=== PATIENT | female | born 1970 | race Caucasian/White ===

== ENCOUNTER 2017-08-24 05:42 | Emergency (ER) | payer MEDICAID, SELFPAY ==
--- NOTE | 2017-08-24 05:42 | DT_ITS ---
This patient was seen during an EMR downtime August 20, 2017 - August 27, 2017. This patient may have a combination of paper and electronic documentation or all paper documentation. All documentation is viewable within the e-chart portion of [facility] for each patient visit.
== END 2017-08-24 07:30 | disposition home or self-care (01) ==
PROVIDERS: Emergency Provider Emergency Medicine; Family Provider Preventive Medicine Occupational Medicine; PCP Preventive Medicine Occupational Medicine
DX: S16.1XXA Strain of muscle, fascia and tendon at neck level, initial encounter (principal); X58.XXXA Exposure to other specified factors, initial encounter; Y93.9 Activity, unspecified; Y92.9 Unspecified place or not applicable; J02.9 Acute pharyngitis, unspecified; J45.909 Unspecified asthma, uncomplicated; K21.9 Gastro-esophageal reflux disease without esophagitis; M15.9 Polyosteoarthritis, unspecified; F43.10 Post-traumatic stress disorder, unspecified; Z79.899 Other long term (current) drug therapy; Z72.0 Tobacco use
CPT/HCPCS: 96372; 99283

== ENCOUNTER → 2017-08-30 12:51 | Outpatient (CLI) | payer MEDICAID, SELFPAY ==
--- NOTE | 2017-08-31 06:05 | PFTCOMP_ITS ---
COMPLETE PULMONARY FUNCTION TEST INTERPRETATION Brief HPI: Patient is a 46 year old female, currently under the care of Dr. Ludwig , who presents to [facility] for complete pulmonary function tests secondary to diagnosis of asthma. Respiratory therapist reports good effort and reproducible results. Interpretation: Forced expiration spirometry shows no large airways obstructive ventilatory defect with an FEV1 of 97% predicted. There is no significant bronchodilator response by ATS criteria. Spirograms are of good quality and plateau normally. The respiratory flow volume loop shows a normal pattern. Lung volumes by body plethysmography show an elevated total lung capacity at 5.49 L, 120% predicted. All other lung volumes are increased symmetrically. Diffusion capacity by carbon monoxide is normal at 83% predicted. The airway resistance is normal. No previous pulmonary function tests were available for review. Impression: These pulmonary function tests are grossly within normal limits and consistent with quiescent asthma.
== END ==
PROVIDERS: Family Provider Preventive Medicine Occupational Medicine; PCP Preventive Medicine Occupational Medicine; Visit Provider Internal Medicine Critical Care Medicine
DX: J45.909 Unspecified asthma, uncomplicated (principal)
CPT/HCPCS: 94060; 94726; 94729

== ENCOUNTER 2017-09-03 23:36 | Emergency (ER) | payer MEDICAID, SELFPAY ==
[2017-09-03 23:37] VITALS: BP 109/68; PULSE 72; RESP 18; TEMP 35.9; O2SAT 98; BMI 23.8
--- NOTE | 2017-09-04 00:47 | CT_ITS ---
STUDY: CT SOFT TISSUE NECK WITH CONTRAST REASON FOR EXAM: Female, 46 years old. Tongue swelling since yesterday. Elevated white blood count. History of Clark's esophagus. RADIATION DOSAGE (If Supplied By Facility): CTDIvol = ( 13.15 ) mGy, DLP = ( 331.55 ) mGycm TECHNIQUE: The patient was scanned in a multi-detector CT scanner. High resolution transaxial imaging was performed following intravenous administration of 75ml ml of Isovue 300 contrast material. Sagittal and coronal images were reconstructed. Individualized dose optimization techniques were used for this CT. COMPARISON: None. FINDINGS: Normal bilateral parotid glands. Normal bilateral flying instructor spaces. Normal bilateral parapharyngeal spaces. Normal bilateral carotid spaces. Normal bilateral sublingual and submandibular glands and spaces. Normal visualized nasopharynx. Normal retropharyngeal space. Normal perivertebral space. Normal visualized bilateral faucial tonsils. The visualized tongue, tongue base and oropharynx are normal. Mildly enlarged right deep cervical lymph nodes with the largest measuring 1.4 cm, coronal image 53. There is no demonstrated solid or cystic mass lesion. There is no abnormal contrast enhancement. Normal epiglottis, bilateral vallecula and hypopharynx. The pre-epiglottic and paraglottic adipose spaces are normal. Normal visualized bilateral piriform sinuses, aryepiglottic folds, vocal cords, and arytenoid-cricoid articulations. Normal subglottic trachea. Normal bilateral lobes of the thyroid gland. Normal visualized pulmonary apices. Normal visualized paranasal sinuses. Normal visualized cervical spine. CT/Soft Tissue Neck WITH Contrast IMPRESSION: Mild right sided cervical lymphadenopathy. The tongue is grossly normal. Electronically Signed: Ritesh Samuel MD at 3:15 EDT , Service support ,
--- NOTE | 2017-09-04 00:51 | ED.DCSUM_ITS ---
- ER Visit Summary Date of Service: 09/04/17 Chief Complaint: Tongue swelling History of Present Illness: The patient is a 46 F with tongue swelling that started gradually this morning. Her tongue is painful and she has trouble closing her mouth. She is not having trouble breathing or swallowing. Her voice seems hoarse. No fever or other associated symptoms. She never had this before. Physical Examination: Afebrile and vital signs unremarkable. The patient is alert. Voice is hoarse. Tongue is diffusely swollen, but only mildly. Good range of motion of her neck. Face is normal. Heart regular. Lungs clear. The remainder of her exam is unremarkable. Test Results: Laboratory studies and imaging are pending. Emergency Department Course and Treatment: Patient's airway is intact. Will monitor. She was treated with steroids and Benadryl while awaiting results. Workup was largely unremarkable. Her white count is 14.2, BMP normal and test negative. CT was done and showed right cervical lymphadenopathy but her tongue was normal. I reassessed the patient. She was sleeping with her mouth closed. Breathing comfortably. Tongue appears improved. No pain or new issues. Otherwise exam unremarkable. Voice is improved. She is requesting discharge. At this time, there is no evidence of abscess, angioedema, Ludwigs, or any other issue. The patient will be discharged. Continue her home medications. Return for any new or worsening issues. Treatment Plan: As above Disposition: Discharged Impression: 1. Tongue swelling 2. Leukocytosis This note was generated with [employer] dictation software. It may contain incorrect words, spelling, and punctuation that were not noted in review of the chart prior to signing ED Disposition - Plan for ED Patient: Chief Complaint: Edema Referrals: Edson Head DO [Primary Care Provider] -
[2017-09-04 01:11] LABS: Absolute Lymphocyte Count 2.79 X10^3/ul (0.83-4.51); Absolute Neutrophil Count 9.6 X10^3/uL (2.0-7.7); Basophil# 0.08 X10^3/uL; Basophil% 0.6 % (0-1); Eosinophil# 0.17 X10^3/uL; Eosinophils% 1.2 % (0-5); Hemoglobin 12.7 g/dl (12.0-15.0); Lymphocyte # 2.79 X10^3/ul (4.0); Lymphocyte % 19.7 % (19-41); Mean Corp Hgb Conc 33.4 g/gl (32-36); Mean Corpuscular Hgb 31.4 pg (27.0-32.0); Mean Corpuscular Volume 93.8 fL (81-99); Mean Platelet Vol. 10.2 fl (6.2-12.0); Monocyte# 1.41 X10^3/uL; Monocyte% 9.9 % (0-10); Neutrophil # 9.64 X10^3/uL (2.7-7.7); Platelet Count 242 K/mm3 (150-450); RBC Distribution Width CV 13.6 % (11.6-14.6); RBC Distribution Width SD 45.1 fl (35.1-43.9); Red Blood Count 4.05 M/mm3 (4.2-5.4); White Blood Count 14.2 K/mm3 (4.4-11.0)
[2017-09-04 01:16] LABS: POSITIVE COUNT NO; POSITIVE DIFFERENTIAL NO; POSITIVE MORPHOLOGY NO
[2017-09-04 01:25] LABS: Anion Gap 5 (5-15); BUN 16 mg/dL (7-18); BUN/Creat Ratio 21.7 RATIO (10-20); Calcium,Total 8.8 mg/dL (8.5-10.1); Chloride 108 mmol/L (98-107); Creatinine, Serum 0.74 mg/dL (0.55-1.02); EST Glomerular Filtration Rate 89 mL/min (>60); Est Glom Filt Rate - Afr Amer 108 mL/min (>60); Estimated Creatinine Clearance 73.53 ml/min; Glucose 103 mg/dL (74-106); Potassium 4.1 mmol/L (3.5-5.1); Sodium Level 141 mmol/L (136-145)
[2017-09-04 02:01] LABS: Pregnancy, Serum, hCG Quali. NEGATIVE Negative (0-9 Nonpreg)
[2017-09-04] MEDS: MethylPREDNISolone 125 MG/2 ML Vial IV (02:28)
[2017-09-04] MEDS: DiphenhydrAMINE 50 MG/ML Syringe 25 MG IV (02:28)
[2017-09-04 03:33] VITALS: PULSE 87; RESP 14; O2SAT 97
--- NOTE | 2017-09-04 03:38 | ED.DEP ---
ED Disposition - Plan for ED Patient: Chief Complaint: Edema Instructions: ED Dehydration Referrals: Edson Head DO [Primary Care Provider] - As soon as possible
[2017-09-04 03:39] VITALS: BP 110/70; PULSE 72; RESP 16; O2SAT 98
== END 2017-09-04 03:43 | disposition home or self-care (01) ==
LOC: ED 09-04 01:12
PROVIDERS: Emergency Provider Emergency Medicine; Family Provider Preventive Medicine Occupational Medicine; PCP Preventive Medicine Occupational Medicine
DX: R22.0 Localized swelling, mass and lump, head (principal); K14.6 Glossodynia; D72.829 Elevated white blood cell count, unspecified; J45.909 Unspecified asthma, uncomplicated; K21.9 Gastro-esophageal reflux disease without esophagitis; Z72.0 Tobacco use; Z79.899 Other long term (current) drug therapy
CPT/HCPCS: 70491; 80048; 84703; 85025; 96374; 96375; 99285; J7030; J7040; Q9967; A4216

== ENCOUNTER 2018-02-09 19:09 | Emergency (ER) | payer MEDICAID, SELFPAY ==
[2018-02-09 19:10] VITALS: BP 158/74; PULSE 82; RESP 16; TEMP 36.6; O2SAT 98; BMI 24.3
--- NOTE | 2018-02-09 19:41 | CT_ITS ---
STUDY: CT ABDOMEN AND PELVIS WITHOUT CONTRAST REASON FOR EXAM: Female, 47 years old. Abdominal pain nausea vomiting. RADIATION DOSAGE (If Supplied By Facility): CTDIvol = ( 6.20 ) mGy, DLP = ( 291.08 ) mGycm TECHNIQUE: Transaxial images were obtained from the dome of the diaphragm to the symphysis pubis without oral contrast, and without intravenous contrast. Sagittal and coronal images were reconstructed. Individualized dose optimization techniques were used for this CT. COMPARISON: 11/09/2016. FINDINGS: Lung bases are clear. Visualized heart is normal. The liver is unremarkable. The gallbladder is surgically absent. The spleen and pancreas are unremarkable. The aorta is normal in caliber. The adrenal glands are normal. The kidneys are unremarkable. No stones or hydronephrosis. There is no free fluid, free air, or organized collection. No bowel obstruction or inflammatory change. Normal appendix. Urinary bladder is unremarkable. Normal abdominal wall. Normal osseous structures. CT/Abdomen/Pelvis without Cont IMPRESSION: Normal CT of the abdomen and pelvis. Electronically Signed: Makenzie Ortiz MD at 21:57 EST Tel , Service support ,
[2018-02-09] MEDS: Morphine 4 MG/ML Syringe IV (20:09)
[2018-02-09] MEDS: Ondansetron 4 MG/2 ML Vial IV (20:09)
--- NOTE | 2018-02-09 20:12 | ED.RN ---
2MG MORPHINE GIVEN PER REQUEST BY PATIENT AND FAMILY
[2018-02-09 20:17] LABS: Absolute Lymphocyte Count 2.79 X10^3/ul (0.83-4.51); Absolute Neutrophil Count 4.6 X10^3/uL (2.0-7.7); Basophil# 0.06 X10^3/uL; Basophil% 0.7 % (0-1); Eosinophil# 0.21 X10^3/uL; Eosinophils% 2.5 % (0-5); Lymphocyte # 2.79 X10^3/ul (4.0); Lymphocyte % 32.8 % (19-41); Mean Corp Hgb Conc 33.3 g/gl (32-36); Mean Corpuscular Volume 93.1 fL (81-99); Mean Platelet Vol. 10.6 fl (6.2-12.0); Monocyte# 0.83 X10^3/uL; Monocyte% 9.8 % (0-10); POSITIVE COUNT NO; POSITIVE DIFFERENTIAL NO; POSITIVE MORPHOLOGY NO; Platelet Count 214 K/mm3 (150-450); RBC Distribution Width CV 13.6 % (11.6-14.6); RBC Distribution Width SD 45.5 fl (35.1-43.9); Red Blood Count 4.19 M/mm3 (4.2-5.4); White Blood Count 8.5 K/mm3 (4.4-11.0)
[2018-02-09 20:44] LABS: AST(SGOT) 13 U/L (15-37); Alanine Aminotransfer ALT/SGPT 14 U/L (13-56); Albumin, Serum 3.2 g/dL (3.2-5.0); Alkaline Phosphatase 89 U/L (45-117); Anion Gap 7 (5-15); BUN 15 mg/dL (7-18); BUN/Creat Ratio 12.5 RATIO (10-20); Bilirubin, Direct 0.06 mg/dL (0.00-0.30); Calcium,Total 8.4 mg/dL (8.5-10.1); Chloride 112 mmol/L (98-107); EST Glomerular Filtration Rate 51 mL/min (>60); Est Glom Filt Rate - Afr Amer 61 mL/min (>60); Estimated Creatinine Clearance 44.85 ml/min; Globulin 3.3 g/dL (2.2-4.2); Glucose 98 mg/dL (74-106); Potassium 3.8 mmol/L (3.5-5.1); Protein, Total 6.5 g/dL (6.4-8.2); Sodium Level 145 mmol/L (136-145)
[2018-02-09 20:53] LABS: Bacteria 0 SEEN /hpf (None Seen); Color, Urine Yellow (Yellow); Glucose, Dipstick Normal (Normal); Ketone-Dipstick Negative (Negative); Leukocyte Esterase-Dipstick 25 /ul (Negative); Mucous, Urine 0 SEEN /hpf (<or=2+); Nitrite-Dipstick Negative (Negative); Occult Blood-Urine 10 /ul (Negative); Protein-Dipstick Negative (Negative); Urine Bilirubin Dipstick Negative (Negative); Urine Clarity Clear (Clear); Urine Urobilinogen Normal (Normal); Urine pH 6.5 (5.0 - 8.0)
[2018-02-09 20:57] LABS: Pregnancy, Serum, hCG Quali. NEGATIVE Negative (0-9 Nonpreg)
[2018-02-09 21:06] LABS: Red Blood Cells-Urine 0-5 SEEN /hpf (0-5); Squamous Epithelial Cells - UA 0-5 SEEN /hpf (5-10); White Blood Cells 0-5 SEEN /hpf (0-5)
--- NOTE | 2018-02-09 22:59 | ED.DCSUM_ITS ---
- ER Visit Summary Date of Service: 02/09/18 Chief Complaint: Abdominal pain History of Present Illness: The patient is a 47 F with right-sided abdominal pain intermittently for the past month. She has chronic diarrhea. She vomited today. There is been no fever or chills. Patient has history of asthma, kidney stones, Clark's esophagus, reflux disease. Physical Examination: Blood pressure is 150/74, otherwise vitals normal. Patient is lying in bed no acute distress. Head neck examination is unremarkable. Heart is regular rate and rhythm. Lung sounds are clear. Abdomen is soft with right-sided tenderness, both upper and lower quadrants. No guarding or rebound. Active bowel sounds are noted. Test Results: CBC and chemistry studies are unremarkable. LFTs normal. CT flank is normal. Emergency Department Course and Treatment: Patient given IV fluids, morphine, and Zofran. Test results are discussed with patient and family at bedside. They state that she had some lumps that popped up in the right lower quadrant that now seem to be gone. Patient may be having muscle spasms. She already has anti-inflammatories and antispasm medicine at home that she will take. She already has Zofran to use as well. Patient is to follow-up with primary care physician. Treatment Plan: [] Disposition: Discharge Impression: Abdominal pain, uncertain etiology This note was generated with [employer] dictation software. It may contain incorrect words, spelling, and punctuation that were not noted in review of the chart prior to signing ED Disposition - Plan for ED Patient: Disposition: Home or Assisted Living Chief Complaint: Abd Pain Instructions: ED Abdominal Pain Unkn Cause Referrals: Edson Head DO [Primary Care Provider] - 3-5 Days if not improving
[2018-02-09 23:08] VITALS: RESP 18
== END 2018-02-09 23:12 | disposition home or self-care (01) ==
PROVIDERS: Emergency Provider Emergency Medicine; Family Provider Preventive Medicine Occupational Medicine; PCP Preventive Medicine Occupational Medicine
DX: R10.11 Right upper quadrant pain (principal); R10.31 Right lower quadrant pain; K52.9 Noninfective gastroenteritis and colitis, unspecified; R11.2 Nausea with vomiting, unspecified; J45.909 Unspecified asthma, uncomplicated; K21.9 Gastro-esophageal reflux disease without esophagitis; F32.9 Major depressive disorder, single episode, unspecified; Z72.0 Tobacco use; Z79.899 Other long term (current) drug therapy; Z87.442 Personal history of urinary calculi
CPT/HCPCS: 74176; 80048; 80076; 81001; 84703; 85025; 96361; 96374; 96375; 99283; J7040; A4216; J2405

== ENCOUNTER 2018-02-21 13:00 | Outpatient (RCR) | payer MEDICAID, SELFPAY ==
--- NOTE | 2017-11-26 11:52 | HP.PTEVAL ---
Patient's Visit Information FELICIANO HERNANDEZ is a 47 year old F referred to Physical Therapy by Emerson Julio with a diagnosis of Left shoulder surgery. Date of Evaluation: 11/26/17 Physical Therapist: Crystal Chen - Visit Plan Frequency: 3x /Week Duration: 3 Weeks Plan: Phase 1 until 11/30 Phase 2 until 12/14 then progress to phase 3 as tolerated. - Subjective Subjective: Patient reports that she had surgery October 25- she is 3 weeks post op- had bone spur and bone chopped off on the left side. Initial surgery was due to arthritis and 2 fingers and thumb going numb. The surgery has made the the N/T go away and her hand is not as cold. Was tighening a jar and felt a pop- about a week ago- went to the ER- did an x-ray and a ultrasound- then sent her back to the surgeon. Who saw her and did an injection in the shoulder. She is left hand domiante. The pain in the biceps/deltoid has subsided but she still has pain in the shoulder. Had a RTC repair and bone spur removal a couple of years ago. No radiating pain and swells up on the back of her neck- upper trap area. Describes the pain as burning and stabbing. Worst: 10/10 Agg: moving it, pulling or pushing. Best: 5/10. Eases: medication. But she doesn't like to take it. Goes back to [facility] on the 12 of December. Sleep: disturbed- side sleeper- hard to get comfortable laying on the left shoulder. Work: does not work- but does a lot of cleaning daily. PMhx: asthma, prone to kidney infections, DDD in back, depression, PTSD Meds: requip, heartburn meds- has other meds that she takes here and there- if she takes to many she gets sick. No EFRRO, blurred vision, dizziness. Decreased finger dexterity and performance test consultant strength. - Objective Posture: L arm held against side and elbow flexed. L shoulder depressed- guarded posture. No sling Gait: WNL with L arm held against side and elbow flexed. AROM: elbow supination and pronation WNL, bicep pn with elbow flex., AROM wrist: difficulty with opposition to 4th and 5th phalange. PROM shoulder: limited and painful Flexion: apporx 90 degrees, abd approx 90 degrees, IR: to belly, ER: approx 50 degrees. Strength: Shoulder: not tested secondary to protocol. Elbow: 3+/5 with pain, Wildlife Biostation Research Ecologist: decreased by 50% of other hand. Palpation: significantly tender over uppr trap and along incision down the biceps/triceps/deltoid- sensation: decreased along incision, tender to palpate - Goals Goal 1:: Patient will be I with HEP and progression Goal Time Frame: 4-6 Weeks Goal 2:: Patinet will demo full AROM of the left shoulder as per protocol Goal Time Frame: 4-6 Weeks Goal 3:: Patient will demo ability to stack 5 cones to an overhead shelf. Goal Time Frame: 4-6 Weeks Goal 4:: Patient will demo 4+/5 strength in UE where deficit Goal Time Frame: 4-6 Weeks Goal 5:: Patient will report 2/10 pain for 1 week Goal Time Frame: 4-6 Weeks - Rehabilitation Potential Physical Therapy Diagnosis: Patient presents with hypmobility- she has decreased ROM, strength and muscular endurance s/p left shoulder surgery decreasing her ability to perform ADL's. Rehabilitation Potential: Good - Anticipated Interventions Patient/Client Instruction: Educate patient on: Benefits of Fitness Program Therapeutic Exercise to Include: Strength training, Endurance training, Body mechanics, Postural training, Passive ROM, Active ROM, Scapular Strength/Stabilization Comment: as per protocol For the Purpose of:: To improve muscle performance and motor function Manual Therapy Techniques to Include: Passive ROM, Soft tissue mobilization For the Purpose of:: To increase ROM, To improve nutrient delivery to tissue TENS: Yes Cryotherapy (ice pack, ice massage): Yes Thermo therapy (hot pack): Yes Ultrasound (thermal/non thermal): Yes For the Purpose of:: To decrease pain Thank you for the opportunity to evaluate your patient. For Medicare and Medicare HMO plans, please review the plan of care and approve it. It will need to be FAXED BACK to us at [phone] for Medicare purposes. Please let me know if there are questions or concerns regarding this plan of care. Physician Signature: Date:
--- NOTE | 2017-12-17 15:28 | HP.PTREVAL ---
Emerson Julio, It has been my pleasure to treat FELICIANO HERNANDEZ over the last 10 visits for Left shoulder surgery. Please see the progress note below for an update on the physical therapy plan of care! Subjective: Has been doing sanding and pulling up carpet. And was doing yard work outside using hedge clippers. Plans to see OT after this for her hand that draws up. Feels that her shoulder is getting better- javier when she is not doing things she is not suppose to be. Saw MD the th who is happy with the progress. Feels that she needs to continue therapy. Objective/Function: Gait: WFL, L elbow remains flexed. Posture: rounded shoulders, trunk and cervical neck remained flexed forward while seated. AROM: L shoulder flex approx 160 deg, abd. to 90 deg, IR to low back, ER/IR at 0 WFL, ER to neutral at 90 deg, IR WFL at 90 deg. Strength: L Shoulder flex., abd, ER/IR 3/5, ext. 5/5, elbow flex. 3/5, ext. 5/5. Plan Plan: Cont. with PT services focusing on gaining full AROM and increasing shoulder strength to 4+/5 where deficits. Goals Goal 1:: Patient will be I with HEP and progression Goal Time Frame: 4-6 Weeks Goal Progress: Progressing Goal 2:: Karennet will demo full AROM of the left shoulder as per protocol Goal Time Frame: 4-6 Weeks Goal Progress: Progressing Goal 3:: Patient will demo ability to stack 5 cones to an overhead shelf. Goal Time Frame: 4-6 Weeks Goal Progress: Progressing Goal 4:: Patient will demo 4+/5 strength in UE where deficit Goal Time Frame: 4-6 Weeks Goal Progress: Progressing Goal 5:: Patient will report 2/10 pain for 1 week Goal Time Frame: 4-6 Weeks Goal Progress: Progressing Anticipated Interventions Patient/Client Instruction: Educate patient on: Benefits of Fitness Program Therapeutic Exercise to Include: Strength training, Endurance training, Body mechanics, Postural training, Passive ROM, Active ROM, Scapular Strength/Stabilization Comment: as per protocol For the Purpose of:: To improve muscle performance and motor function Manual Therapy Techniques to Include: Passive ROM, Soft tissue mobilization For the Purpose of:: To increase ROM, To improve nutrient delivery to tissue TENS: Yes Cryotherapy (ice pack, ice massage): Yes Thermo therapy (hot pack): Yes Ultrasound (thermal/non thermal): Yes For the Purpose of:: To decrease pain Please do not hesitate to contact me at [phone] by phone or if you have questions or concerns regarding this new plan of care! Sincerely, Crystal Chen
--- NOTE | 2017-12-17 17:04 | HP.OTEVAL ---
Patient's Visit Information FELICIANO HERNANDEZ is a 47 year old F, referred to Occupational Therapy by Emerson Julio, with a diagnosis of hand pain. Date of Evaluation: 12/17/17 Occupational Therapist: Regina Benavidez, HUMBERTO/Loreto, T - Subjective Subjective: Pt states she has been having trouble dropping items. Pt states both hads cramp and cause her difficulty with picking up or use of her hands. Pt states they have been cramping for about a year. Pt states she has had pain in her finger joints, states if she uses her hands more her fingers hurt. Pt does all the yard work, mowing, weeding, prunning, sanding a wooden floor on her knees using a hand scudder. Pt states she is on a lifting restriction. pt states she had a nerve conduction test last year and it was negative. pt would like to stop dropping items in the kitchen or in the bathroom and decrease her hand pain. - Pain right hand 0 Pain Intensity Range: 0, 8 left hand 8 Pain Intensity Range: 1, 8 - Strength In Store Representative: right 60# left 20# Lateral Pinch: right 10# left 2# Tripod Pinch: right 8# left 2# - Sensation Thumb: right 3.22 left 3.61 Index: right 2.83 left 3.61 Middle: right 3.22 left 3.61 Ring: right 2.83 left 3.61 Little: right 2.83 left 3.61 Sensation Comments: left tested at 3.61 demo some nerve involvment - Nine Hole Peg Right: 19.30 sec Left: 22.10 sec. - In-Hand Manipulation Finger to Palm Translation: Normal - Right, Normal - Left Palm to Finger Translation: Normal - Right, Normal - Left - Special Tests Phalen's (Carpal Tunnel): positive on left Median Nerve Compression Test: positive on left - Carpal Tunnel Syndrome Total Score of Symptom & Functional Sections: 41 - Goals Goal:: PT will demo an increase in thread spinner strength by 20# to increase independent with basic occupations of daily living to return pt to PLOF by D/C. Goal:: Pt will report pain no greater than 1/10 with use of affected hand with BADLs and IADLs by d/c. Goal:: Pt will demo the ability to form a composite fist to hold and receive 10 coins without dropping coins/ and coin manipulation/money mtg. tasks by D/C. Goal:: Pt will demo understanding of joint protection and ergonomics when performing BADLs and IADLs by d/c. Pt will demo understanding of ad. Eq. use to decrease stress on joints to allow pt to perform BADSL and IADLS at EVELIN level. - Rehabilitation General Assessment: pt demo a decrease in left thread spinner strength and pain in bilateral hands that limits her ind. with BADLs and IADLS. pt demo a decrease in FMS that increases pts difficulty with daily occupations. pt would benefit from skilled OT services 2x week for 4 weeks to ed. pt on joint protection, ad. eq, and energy conservation to increase ind. with BADLS and decrease joint pain to return pt to PLOF. Rehabilitation Potential: Good - Anticipated Interventions Anticipated Interventions: A/AAROM/PROM, Triggerpoint Release, Modalities, Orthoses, Joint Protection/Energy Conservation, Ergonomic Education, Fine Motor Coord/Ruddy - Visit Plan Frequency: 2x /Week Duration: 4 Weeks TEXT: Thank you for the opportunity to evaluate your patient. For Medicare and Medicare HMO plans, please review the plan of care and approve it. It will need to be FAXED BACK to us at [phone] for Medicare purposes. Please let me know if there are questions or concerns regarding this plan of care. Physician Signature: Date:
--- NOTE | 2018-01-02 08:23 | HP.OTDCSUM_ITS ---
HP - OT D/C Summary It has been my pleasure to treat FELICIANO HERNANDEZ under orders from Emerson Julio, for the diagnosis of hand pain for a total of 4 visit(s). Please see the following information for a summary of their discharge status. - Objective Objective/Function: lateral pinch: 8 lb. for R and 8 lb. for L. tripod grasp: 11 lb. in R and 8 lb. in L. grasp: 65 in L and 60 in R. patient reports having no additional concerns during functional tasks. - Goals Patient Goals: Regain Strength, Decrease Pain, Improve Fine Motor Skills, Use Hand/Wrist/Arm Normally Again, Sleep Better, Decrease Tingling/Numbness Goal:: PT will demo an increase in editor newspaper strength by 20# to increase independent with basic occupations of daily living to return pt to PLOF by D/C. Goal:: Pt will report pain no greater than 1/10 with use of affected hand with BADLs and IADLs by d/c. Goal:: Pt will demo the ability to form a composite fist to hold and receive 10 coins without dropping coins/ and coin manipulation/money mtg. tasks by D/C. Goal:: Pt will demo understanding of joint protection and ergonomics when performing BADLs and IADLs by d/c. Pt will demo understanding of ad. Eq. use to decrease stress on joints to allow pt to perform BADSL and IADLS at EVELIN level. - Plan Plan: patient d/c - D/C Information Discharge Comments: Patient made excellent progress towards meeting goals. Pt. demo increase in editor newspaper, lateral and tripod pinch strength and demo understanding of joint protection and ECM. Patient reports no pain and that spasms have subsided. Pt. reported no concerns upon d/c. OT educated pt. on cont. HEP and taking RB as needed. OT provided pt. with joint protection handout to take home. If there are questions or concerns regarding this patient's occupational therapy, please fell free to call me at [phone]. Thank you for the referral of this patient. Sincerely, Regina Benavidez, OTR/L, CHT
--- NOTE | 2018-01-18 10:48 | HP.PTREVAL ---
Emerson Julio, It has been my pleasure to treat FELICIANO HERNANDEZ over the last 18 visits for Left shoulder surgery. Please see the progress note below for an update on the physical therapy plan of care! Subjective: Denise reports that the shoulder is doing okay- she is able to use it more but its just not all the way there. She has difficulty putting boxes on shelves that are heavy. Feels that her arm is 90% back to normal. Left hand gets tired quickly. Objective/Function: Gait: severely antalgic today- forward posture- patient reports taking pain pill for back and hip due to the weather, L elbow remains flexed. Posture: rounded shoulders, trunk and cervical neck remained flexed forward while seated- can correct given verbal cueing. AROM: L shoulder flex approx 160 deg, abd. to 110 deg, IR to low back, ER/IR at 0 WFL, ER to neutral at 90 deg, IR WFL at 90 deg. Strength: L Shoulder flex., abd, ER/IR 4/5, ext. 5/5, elbow flex. 4/5, ext. 5/5. Plan Plan: Continue therapy 1x a week for 4 weeks to progress to HEP. Goals Goal 1:: Patient will be I with HEP and progression Goal Time Frame: 4-6 Weeks Goal Progress: Progressing Goal 2:: Denise will demo full AROM of the left shoulder as per protocol Goal Time Frame: 4-6 Weeks Goal Progress: Progressing Goal 3:: Patient will demo ability to stack 5 cones to an overhead shelf. Goal Time Frame: 4-6 Weeks Goal Progress: Progressing Goal 4:: Patient will demo 4+/5 strength in UE where deficit Goal Time Frame: 4-6 Weeks Goal Progress: Progressing Goal 5:: Patient will report 2/10 pain for 1 week Goal Time Frame: 4-6 Weeks Goal Progress: Progressing Anticipated Interventions Patient/Client Instruction: Educate patient on: Benefits of Fitness Program Therapeutic Exercise to Include: Strength training, Endurance training, Body mechanics, Postural training, Passive ROM, Active ROM, Scapular Strength/Stabilization Comment: as per protocol For the Purpose of:: To improve muscle performance and motor function Manual Therapy Techniques to Include: Passive ROM, Soft tissue mobilization For the Purpose of:: To increase ROM, To improve nutrient delivery to tissue TENS: Yes Cryotherapy (ice pack, ice massage): Yes Thermo therapy (hot pack): Yes Ultrasound (thermal/non thermal): Yes For the Purpose of:: To decrease pain Please do not hesitate to contact me at [phone] by phone or if you have questions or concerns regarding this new plan of care! Sincerely, Crystal Chen
--- NOTE | 2018-05-02 07:53 | HP.PTDCNRP_ITS ---
HP - Discharge Summary (1) - Patient Information FELICIANO HERNADNEZ was seen in my office for initial evaluation on 11/26/17. The following Plan of Care was established for this patient: Initial Frequency: 3x /Week Initial Duration: 3 Weeks - Anticipated Interventions Patient/Client Instruction: Educate patient on: Benefits of Fitness Program Therapeutic Exercise to Include: Strength training, Endurance training, Body m echanics, Postural training, Passive ROM, Active ROM, Scapular Strength/Stabilization For the Purpose of:: To improve muscle performance and motor function Manual Therapy Techniques to Include: Passive ROM, Soft tissue mobilization For the Purpose of:: To increase ROM, To improve nutrient delivery to tissue TENS: Yes Cryotherapy (ice pack, ice massage): Yes Thermo therapy (hot pack): Yes Ultrasound (thermal/non thermal): Yes For the Purpose of:: To decrease pain This patient was last seen in our office . Pertinent comments regarding their Physical therapy will appear below: Discharge to I HEP At this point I will be discontinuing this patient from physical therapy. I would be happy to see this patient again in the future if found appropriate by the physician. Thank you! SUMAYA ReyesT
== END 2018-02-21 19:00 | disposition home or self-care (01) ==
LOC: PT 13:00
PROVIDERS: Family Provider Preventive Medicine Occupational Medicine; PCP Preventive Medicine Occupational Medicine; Visit Provider Orthopaedic Surgery
DX: M19.012 Primary osteoarthritis, left shoulder (principal)
CPT/HCPCS: 97014; 97110; 97140; 97162; 97164; 97166; 97530; G0283

== ENCOUNTER 2018-05-08 21:12 | Emergency (ER) | payer MEDICAID, SELFPAY ==
[2018-05-08 21:12] VITALS: BP 98/66; PULSE 72; RESP 16; TEMP 36.6; O2SAT 99; BMI 25.2
--- NOTE | 2018-05-08 21:35 | RAD_ITS ---
STUDY: X-RAY - RIGHT HIP REASON FOR EXAM: Female, 47 years old. Trauma TECHNIQUE: 3 views of the hip. COMPARISON: None. FINDINGS There is no evidence of fracture or dislocation in the right hip. There are moderate degenerative changes. RAD/HIP, UNI W/ Pelvis 2-3 Views IMPRESSION: CT dated 02/09/2018. Electronically Signed: Rafael Ortiz, at 22:39 EST Tel , Service support ,
[2018-05-08] MEDS: HYDROcodone Bitartrate/Apap 5/325 Tablet PO ×2 (21:52→23:00)
--- NOTE | 2018-05-08 22:51 | ED.DCSUM_ITS ---
- ER Visit Summary Date of Service: 05/08/18 Chief Complaint: [Right hip pain] History of Present Illness: The patient is a 47 F [presents the emergency department complaint of right hip pain after her dog jerked her while the dog was on a leash. Patient states that she was pulled forcefully twice and at one point she started to run and felt a pop in her right hip. Patient had severe pain since that time. Patient states that she has a history of arthritis of the right hip and typically will have some pain into her right buttock. Today patient planes of pain radiating down towards her knee. She denies loss of bowel or bladder function. She denies weakness the extremity. She denies any back pain.] Physical Examination: [HEENT-PERRLA, EOMI. Cranial nerves II through XII grossly intact. TMs clear. Mucous membranes moist. No adenopathy. Cardiovascular-regular rate and rhythm without murmur or ectopy Lungs-clear to auscultation, chest wall stable without crepitus or subcu emphysema Abdomen-normoactive bowel sounds, soft, nontender, no rebound or rigidity, no peritoneal signs. Back exam-no tenderness over the thoracic or lumbar spine. Deep tendon reflexes are plus out of 4 bilaterally at the patella and Achilles. Patient has normal L5 extension bilaterally. Patient has normal sensation to light touch. Extremities-intact ?4, normal range of motion, normal pulses, atraumatic. Right hip-patient has pain with range of motion of the right hip with straight leg raising as well as internal and external rotation. There is no shortening of the extremity. She is neurovascular intact with normal station normal cap refill. There is no erythema or warmth noted on the skin.] Test Results: [X-rays of the right hip and pelvis obtained showed arthritic changes of the right hip but no fractures or dislocations.] Emergency Department Course and Treatment: [Patient was given 1 [place] in the emergency department.] Treatment Plan: [Patient to follow-up with her orthopedic surgeon within next 5- 7 days. Patient given a prescription for [place] for pain. Patient has meloxicam at home as well as muscle relaxers.] Disposition: [Discharged home in stable condition] Impression: [Right hip/groin strain] This note was generated with [employer] software. It may contain incorrect words, spelling, and punctuation that were not noted in review of the chart prior to signing ED Disposition - Plan for ED Patient: Referrals: Edson Head DO [Primary Care Provider] -
--- NOTE | 2018-05-08 22:51 | ED.DEP ---
ED Disposition - Plan for ED Patient: Instructions: ED Sprain Hip Prescriptions: Hydrocodone Bitart/Apap 5-325 [[place] 5MG-325MG] 1 tab PO Q4H PRN PRN 2 Days #10 tab PRN Reason: Pain Referrals: Edson Head DO [Primary Care Provider] - Additional Instructions: see your orthopedic surgeon in 5-7 days
--- NOTE | 2018-05-08 22:54 | DCINST.ED_ITS ---
ED Disposition - Plan for ED Patient: Instructions: ED Sprain Hip Prescriptions: Hydrocodone Bitart/Apap 5-325 [[place] 5MG-325MG] 1 tab PO Q4H PRN PRN 2 Days #10 tab PRN Reason: Pain Referrals: Edson Head DO [Primary Care Provider] - Additional Instructions: see your orthopedic surgeon in 5-7 days
[2018-05-08 23:12] VITALS: RESP 16
== END 2018-05-08 23:13 | disposition home or self-care (01) ==
LOC: ED 22:03
PROVIDERS: Emergency Provider Emergency Medicine; Family Provider Preventive Medicine Occupational Medicine; PCP Preventive Medicine Occupational Medicine
DX: S76.011A Strain of muscle, fascia and tendon of right hip, initial encounter (principal); X50.9XXA Other and unspecified overexertion or strenuous movements or postures, initial encounter; Y93.K1 Activity, walking an animal; Y92.9 Unspecified place or not applicable; Y99.9 Unspecified external cause status; M19.90 Unspecified osteoarthritis, unspecified site; J45.909 Unspecified asthma, uncomplicated; Z72.0 Tobacco use; Z79.899 Other long term (current) drug therapy
CPT/HCPCS: 73502; 99284; A4216

== ENCOUNTER 2018-05-21 12:04 | Emergency (ER) | payer MEDICAID, SELFPAY ==
[2018-05-21 12:05] VITALS: BP 110/68; PULSE 83; RESP 15; TEMP 35.5; BMI 25.0
--- NOTE | 2018-05-21 12:32 | ED.DCSUM_ITS ---
History of Present Illness Chief Complaint: Abd Pain Informant: Patient, Friend Onset: Today Context: Sudden Onset Timing: Continuous Location: Sharp upper and lower quadrant centrally Current Severity: Moderate Maximum Severity: Severe Worsened by: Nothing Relieved by: Nothing Associated Symptoms: Nausea and vomiting Narrative: Patient is a 47-year-old woman who is not a good informant presents with central upper and lower abdomen with nausea and vomiting. Emesis is greenish in color. There is no blood or coffee grounds. Last bowel movement was this morning and normal per patient. She denies fever or chills. She does complain of sweating. She does report dry mouth, thirst and lightheadedness. Friend states she had problems with cysts and possible surgery. It was later determined she is status post cholecystectomy. She has not a good informant. She denies respiratory symptoms. She denies food intolerance. She denies cardiac symptoms. She denies history of renal ureterolithiasis. She does report frequency. She denies hematuria or dysuria. She denies history of diabetes. Past Medical History - Allergies and Home Meds Allergies/Adverse Reactions: Allergies cranberry Allergy (Verified 05/21/18 12:05) Swelling mustard Allergy (Verified 05/21/18 12:05) Unknown oxycodone [From Roxicodone] Allergy (Verified 05/21/18 12:05) Hives fluoxetine [From Prozac] Adverse Reaction (Verified 05/21/18 12:05) Other MAKES ME SLEEP lactose Adverse Reaction (Verified 05/21/18 12:05) Nausea/Vom/Diarrhea nut - unspecified Adverse Reaction (Verified 05/21/18 12:05) Other I TALK LIKE A ARUNA Primary Care Physician: Edson Head DO [Primary Care Provider] - Prior records reviewed: Yes Past Medical History: - - Asthma, Clark's esophagitis Surgical History: cholecystectomy, - - Gynecologic/ovaries Lives: Spouse/ Significant Other Smoking Status: Current every day smoker Alcohol: None Drugs: None Review of Systems General: Reports: Sweats. Denies: Chills, Fever, Subjective, Weight loss Eyes: Denies: Visual changes - bilaterally, Blurred Vision - bilaterally, Diplopia ENT: Denies: Bilateral ear pain, Rhinorrhea, Sore throat Cardiovascular: Denies: Chest pain, Palpitations Respiratory: Denies: Dyspnea, Cough, Dyspnea on exertion Gastrointestinal: Reports: Abdominal pain, Nausea, Vomiting. Denies: Diarrhea, Constipation, Melena, Hematochezia Genitourinary: Reports: Frequency. Denies: Dysuria, Hematuria Musculoskeletal: Denies: Myalgias, Arthralgias, Back pain, Extremity Pain Skin: Denies: Rash, Wounds Neurological: Denies: Headache, Weakness, Parasthesia, Numbness Endocrine: Denies: Polyuria, Polydipsia, Cold intolerance Hematologic: Denies: Easy bruising, Easy bleeding Physical Exam Vital Signs/Narrative: Vital Signs Temp Pulse Resp BP 05/21/18 12:05 96 F L 83 15 110/68 Inital Vital Signs reviewed: Yes General: Well nourished, Well developed, No Acute Distress, Acute Distress Head: Normocephalic, Atraumatic Eyes: Perrl, EOMI. Negative for: Pale conjunctiva, Scleral icterus ENT: No rhinorrhea, TM's clear, Dry mucous membranes. Negative for: Moist mucous membranes, Nasal congestion, Sinus tenderness Neck: Supple, Nontender, No lymphadenopathy, No JVD Cardiovascular: Regular rate, Regular rhythm, No murmurs, Normal S1, Normal S2 Respiratory: No distress, CTA bilaterally, Chest nontender Abdomen: Soft, No masses, Tender, Guarding, Hypoactive bowel sounds. Negative for: Nontender, Nondistended, Normal bowel sounds, Hepatomegaly, Splenomegaly, Mass, Ventral hernia, Inguinal hernia Back: Nontender, Normal Inspection. Negative for: CVA tenderness Extremities: Nontender, No edema. Negative for: Calf Tenderness Skin: No rash, Pallor. Negative for: Cyanosis, Jaundice Neurological: Alert, Oriented x3, Cranial nerves II-XII grossly intact, Normal Strength, Normal Sensation Psychological: Normal affect Diagnostic/Tx/Re-eval White count is 11.5 thousand with 82 segs no bands. Basic metabolic panel is unremarkable. Reviewed CT of the abdomen with p.o. and IV contrast with radiologist who interpreted the film as gastric outlet obstruction. NG was ordered. Hospitalist has been aniya and Dr. Tiff Rouse who is on for [facility] general surgery was paged. Friend at bedside informed me that she sees nurse practitioner for at [facility] GI department. - Medical Decision Making To evaluate patient's symptom of abrupt onset of abdominal pain with nausea vomiting and guarding CBC, basic metabolic panel and UA were obtained. Pending results may need CT of the abdomen to evaluate for inflammatory infectious process. This may also represent a bowel obstruction. With elevated white count, nausea vomiting and significant abdominal discomfort on examination CT of the abdomen with p.o. and IV contrast was obtained to evaluate for inflammatory versus infectious etiology versus obstruction. History physical and results were discussed with Dr. Tiff Rouse. She requested to see the patient to determine if appropriate to stay at [facility] versus transfer in the event she needed surgery. Disposition to be made by Dr. Noel Reynolds after Dr. Tiff Rouse has completed her evaluation of Ms. Oseguera ED Disposition - Plan for ED Patient: Diagnosis: Gastric outlet obstruction Referrals: Edson Head DO [Primary Care Provider] -
[2018-05-21 12:51] LABS: Absolute Lymphocyte Count 1.11 X10^3/ul (0.83-4.51); Absolute Neutrophil Count 9.5 X10^3/uL (2.0-7.7); Basophil# 0.04 X10^3/uL; Basophil% 0.3 % (0-1); Eosinophil# 0.12 X10^3/uL; Hematocrit 45.2 % (37-47); Hemoglobin 14.8 g/dl (12.0-15.0); Lymphocyte # 1.11 X10^3/ul (4.0); Lymphocyte % 9.6 % (19-41); Mean Corp Hgb Conc 32.7 g/gl (32-36); Mean Corpuscular Hgb 30.4 pg (27.0-32.0); Mean Corpuscular Volume 92.8 fL (81-99); Mean Platelet Vol. 10.1 fl (6.2-12.0); Monocyte# 0.77 X10^3/uL; Monocyte% 6.7 % (0-10); Neutrophil # 9.46 X10^3/uL (2.7-7.7); Neutrophil % 82.1 % (47-70); Platelet Count 226 K/mm3 (150-450); RBC Distribution Width CV 13.9 % (11.6-14.6); RBC Distribution Width SD 47.2 fl (35.1-43.9); Red Blood Count 4.87 M/mm3 (4.2-5.4); White Blood Count 11.5 K/mm3 (4.4-11.0)
[2018-05-21 12:54] LABS: POSITIVE COUNT NO; POSITIVE DIFFERENTIAL NO; POSITIVE MORPHOLOGY NO
[2018-05-21 13:06] LABS: ALB/GLOB Ratio 0.9 RATIO (0.9-2.4); AST(SGOT) 14 U/L (15-37); Alanine Aminotransfer ALT/SGPT 15 U/L (13-56); Albumin, Serum 3.5 g/dL (3.2-5.0); Alkaline Phosphatase 128 U/L (45-117); Anion Gap 11 (5-15); BUN 12 mg/dL (7-18); Calcium,Total 8.6 mg/dL (8.5-10.1); Chloride 108 mmol/L (98-107); Creatinine, Serum 0.75 mg/dL (0.55-1.02); EST Glomerular Filtration Rate 87 mL/min (>60); Est Glom Filt Rate - Afr Amer 106 mL/min (>60); Estimated Creatinine Clearance 71.76 ml/min; Globulin 3.8 g/dL (2.2-4.2); Glucose 95 mg/dL (74-106); Lipase 106 U/L (73-393); Protein, Total 7.3 g/dL (6.4-8.2); Sodium Level 142 mmol/L (136-145)
[2018-05-21] MEDS: 0.9% Normal Saline 1,000 ML 1000 ML IV (13:07)
[2018-05-21] MEDS: Ondansetron 4 MG/2 ML Vial IV (13:07)
[2018-05-21] MEDS: Morphine 4 MG/ML Syringe IV (13:09)
--- NOTE | 2018-05-21 13:19 | CT_ITS ---
STUDY: CT ABDOMEN AND PELVIS WITH CONTRAST REASON FOR EXAM: Female, 47 years old. Abdominal pain. Nausea and vomiting. Leukocytosis. RADIATION DOSAGE (If Supplied By Facility): CTDIvol = ( 7.68 ) mGy, DLP = ( 649.58 ) mGycm TECHNIQUE: Transaxial images were obtained from the dome of the diaphragm to the symphysis pubis with oral contrast. Isovue 300 100 IV/Oral was administered. Sagittal and coronal images were reconstructed. Individualized dose optimization techniques were used for this CT. COMPARISON: Comparison is made with prior study dated February 09, 2018. FINDINGS: Mild degree of increased markings at the lung bases suggestive of a mild scarring and/or atelectasis. This is unchanged. The visualized portions of the heart are within normal limits. There is decreased attenuation of the liver consistent with steatosis. There are surgical clips in the gallbladder fossa consistent with a prior cholecystectomy. Mildly dilated common bile duct. This is normal for the post cholecystectomy state. Normal spleen. Normal pancreas. Normal bilateral adrenal glands. Normal right kidney. Normal left kidney. There is a small hiatal hernia. There is a marked degree of distention of the stomach with air and oral contrast. This extends down to the region of the pylorus and first portion of the duodenum. There is thickening of the region of the pylorus. Gastric outlet obstruction should be ruled out. Normal small intestine. Normal colon. The appendix is visualized and appears normal. There is scattered atherosclerotic calcification of the abdominal aorta, without a demonstrated aneurysm. Normal inferior vena cava. Normal retroperitoneum. Normal urinary bladder. Normal abdominal wall. There are diffuse degenerative changes of the visualized lumbar spine. CT/Abdomen/Pelvis WITH Contrast IMPRESSION: Findings in keeping with gastric outlet obstruction. Electronically Signed: Krantih Crane, at 15:31 EST , Service support ,
--- NOTE | 2018-05-21 15:36 | NURSING ---
DR ALVARADO PAGED HOSPITALIST PAGED
--- NOTE | 2018-05-21 15:55 | NURSING ---
DR ALVARADO WITH PATIENT
--- NOTE | 2018-05-21 16:42 | CON.PCM_ITS ---
- Consult Date of Consult: 05/21/18 - Reason for Consult Ena Oseguera is a a 47 year old female who presents to [facility] ED with severe abdominal pain for the past several days. Also has noted nausea and emesis. Findings of CT scan revealing gastric outlet obstruction. Has been followed for gastrointestinal problems by Madhuri Coker NP at [facility]. Last EGD 04/19/16 - findings of Clark's, reflux esophagitis UGI/SBFT 04/01/18 - spontaneous gastric reflux, normal stomach and duodenum was mentioned Patient does complain of intermittent alternating constipation and diarrhea. Weight has been stable. When questioned directly, she states that she has been having nocturnal emesis for years, sometimes with regurgitated food. She admits that she did not tell her health care providers or her this. Her states that the patient complains very little. She has been on PPI for about three years. Had previous cholecystectomy that she does not recall. She last had a bowel movement this morning, but states it was small, last had normal bowel movement yesterday. Last had flatus yesterday. Denies hematemesis. Denies fevers. PAST MEDICAL HISTORY ? 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 Chronic back pain ? Chronic obstructive pulmonary disease (COPD) (HCC) ? GERD (gastroesophageal reflux disease) ? Heart murmur ? History of IBS ? Kidney infection ? Lactose intolerance in adult ? Restless legs ? Schizoaffective disorder ? Tobacco use ? Tuberculosis PAST SURGICAL HISTORY ? COLONOSCOPY ? EGD W/O OR W/BRUSH/WASH 04/19/2016 EGD ? EGD W/O OR W/BRUSH/WASH 02/06/2017 repeat 2 years ? ORTHOPEDICS SURGERY HX Left 10/25/2017 shoulder ? OVARIAN CYSTECTOMY ? PAST SURGICAL HISTORY OF tubes in B ears Tympanoplasty FAMILY HISTORY - raised by foster parents ? other (unknown) Mother ? other (unknown) Father CURRENT MEDICATIONS divalproex ER (DEPAKOTE ER) 500 mg 24 hr tablet Take 250 mg by mouth daily at bedtime. Disp: Rfl: 0 acetaminophen (TYLENOL EXTRA STRENGTH) 500 mg tablet Take 500 mg by mouth every 8 hours as needed. Disp: Rfl: diphenhydrAMINE (BENADRYL) 25 mg capsule Take 1-2 capsules by mouth every 4 hours as needed for Itching/Rash. Disp: 28 capsule Rfl: 0 omeprazole (PRILOSEC) 20 mg capsule Take 1 capsule by mouth twice daily. Disp: 60 capsule Rfl: 3 sertraline (ZOLOFT) 25 mg tablet 25 mg once daily. Disp: Rfl: ondansetron (ZOFRAN, HYDROCHLORIDE,) 4 mg tablet Take 1 tablet by mouth every 8 hours as needed for Nausea/Vomiting. Disp: 15 tablet Rfl: 0 Loratadine (CLARITIN REDITABS) 5 mg ODT Take by mouth. Disp: Rfl: BACLOFEN ORAL Take by mouth as needed. Disp: Rfl: rOPINIRole (REQUIP) 2 mg tablet Take 2 mg by mouth twice daily. Disp: Rfl: albuterol (PROVENTIL) 2.5 mg/0.5 mL nebulizar solution PEDIATRIC ASTHMA Inhale 2.5-5 mg as instructed as directed. Disp: Rfl: montelukast 10 mg tablet Take 5 mg by mouth daily at bedtime. Disp: Rfl: SOCIAL HISTORY: Patient is and lives with her . She smokes 1 ppd and reports her alcohol use as occasionally. REVIEW OF SYSTEMS: GENERAL: No weight loss, malaise or fevers RESPIRATORY: Asthma. CARDIOVASCULAR: Heart murmur. GI: The patient states that her appetite has been adequate. She sometimes gets hungry. There has been some nausea, some vomiting. She denies dysphagia and denies odynophagia. There has not been indigestion or heartburn. There has not been regurgitation. Bowel habits unchanged. There has partially been diarrhea. There has not been constipation. The patient denies rectal bleeding. She is unsure if there has been melena. Intermittent abdominal pain as reported above. PSYCH: History of schizoaffective disorder. ENDOCRINE: No thyroid or diabetes. NEURO: No history of headaches, syncope, paralysis, seizures or tremors All other reviewed and negative other than HPI. PHYSICAL EXAMINATION: Temp 96F Blood pressure 110/64, pulse 80, height 157.5 cm (5' 2), weight 59.7 kg (131 lb 9.6 oz) General Appearance: Well appearing, alert, in no acute distress, well-hydrated, well nourished. Skin: Skin color, texture, turgor normal, no suspicious rashes or lesions. Head: Normocephalic, no masses, lesions or abnormalities. Eyes: Anicteric sclera. Extraocular movements are intact . Oropharynx: Edentulous. Lips, mucosa, and tongue normal, gums normal, oropharynx normal. Neck: Supple, no adenopathy; thyroid symmetric, normal size. Lungs: lungs clear to auscultation. No wheezing, rhonchi, rales. Heart: RRR without murmur. Abdomen: Abdomen soft, but with diffuse tenderness - patient complaint of severe pain and she states that she is bloated, no peritoneal signs Extremities: No deformities, edema.. Impression: abdominal pain, nausea/emesis, gastric outlet obstruction, history of Clark's Plan: I have discussed above with patient and her family who are present with her. The radiologist has stated that there is no contrast existing the stomach, thus she has a complete gastric outlet obstruction. I would recommend at the very minimal that she have NG decompression and evaluation with EGD, however, she may also require surgery to relieve her gastric outlet obstruction. Give this, I would recommend transfer to [facility], if the possibility of gastric surgery is required. The patient and her family are in agreement with this. Discussed with the ED physician. Contact made with [facility] and ED to ED transfer will be made.
--- NOTE | 2018-05-21 16:55 | RAD_ITS ---
STUDY: X-RAY - ABDOMEN/PELVIS REASON FOR EXAM: Female, 47 years old. NG tube placement. TECHNIQUE: AP portable image of the chest and upper abdomen COMPARISON: CT dated May 21, 2018 FINDINGS: Normal visualized lung bases. There is an unremarkable bowel gas pattern. There is no demonstrated free abdominal air. There is a nasogastric tube in place terminating within the expected region of the gastric antrum/pylorus. There are surgical clips within the right upper quadrant consistent prior cholecystectomy. Normal soft tissue structures. Normal visualized osseous structures. RAD/Abdomen Single View (Portable) IMPRESSION: Nasogastric tube in a satisfactory position. Electronically Signed: Margarita Gonzalez MD at 17:17 EST Tel , Service support ,
[2018-05-21 17:00] VITALS: BP 141/74; PULSE 88; RESP 18; O2SAT 95
--- NOTE | 2018-05-21 17:08 | NURSING ---
PATIENT ACCEPTED AT [facility]. DR SMITH, SURGEON, WANTS PATIENT TO GO THROUGH ER. NEED DR TO DR LANDIN
--- NOTE | 2018-05-21 18:06 | NURSING ---
CALLED [facility] FOR TRANSPORT
[2018-05-21 18:37] VITALS: BP 116/40; PULSE 84; RESP 18; O2SAT 95
== END 2018-05-21 18:40 | disposition short-term general hospital (02) ==
LOC: ED 12:52
PROVIDERS: Emergency Provider Emergency Medicine; Family Provider Preventive Medicine Occupational Medicine; PCP Preventive Medicine Occupational Medicine
DX: K31.1 Adult hypertrophic pyloric stenosis (principal); R11.2 Nausea with vomiting, unspecified; J44.9 Chronic obstructive pulmonary disease, unspecified; G25.81 Restless legs syndrome; K58.9 Irritable bowel syndrome, unspecified; M54.9 Dorsalgia, unspecified; G89.29 Other chronic pain; K21.9 Gastro-esophageal reflux disease without esophagitis; F25.9 Schizoaffective disorder, unspecified; F17.200 Nicotine dependence, unspecified, uncomplicated; Z79.899 Other long term (current) drug therapy; Z90.49 Acquired absence of other specified parts of digestive tract
CPT/HCPCS: 74018; 74177; 80053; 83690; 85025; 96361; 96374; 96375; 99285; J7030; Q9967; A4216; J2405

== ENCOUNTER 2018-06-28 10:30 | Outpatient (RCR) | payer MEDICAID, SELFPAY ==
--- NOTE | 2018-05-06 11:57 | HP.PTEVAL ---
Patient's Visit Information FELICIANO HERNANDEZ is a 47 year old F referred to Physical Therapy by Emerson Julio with a diagnosis of Right Shoulder Pain. Date of Evaluation: 05/06/18 Physical Therapist: Crystal Chen DPT - Visit Plan Frequency: 2x /Week Duration: 4 Weeks Plan: Aquatic Therapy- focus on right shoulder ROM with good posture and scap s/s - Subjective Findings: Patient reports that her right shoulder is bothering her. She started having problems with the right when she was here for her left. Has had 2 injections but neither have them have decreased the pain. Goes back to see him May 29 if the PT doesn't help that he will have to go in and fix it. Has had an x-ray and MRI of the shoulder- it did not show a RTC tear but does show inflammation. Pain is located in the anterior portion of the shoulder- No radiating pain unless she uses it a lot but not past the elbow. Worst: 9.9/10 Agg: lifting, pulling and reaching behind her. Eases: rest Best: 0/10. Describes the pain as like someone is trying to rip the arm out of the socket. Left hand dominate. Has recently fallen on the shoulder off of her bed 2-3 weeks ago- feels that she is pretty unstable- might have BPPV self diagnosed. Does have mild right sided neck pain- Does have increase in blured vision, dizziness and FERRO. She has had increase FERRO but does not currently have one thinks its from BPPV. Does not notice dropping things or decreased environmental conservation professor strength. Sleep: does disturb her sleep but randomly. PMHx: PTSD, DDD, Alcohol Syndrome, Allergies, Asthma, Restless Leg, Hearing issues. Meds: Requip, Prilosec, Cramping Pill, Zofran, PRN (Meloxicam, Baclofen) - Objective Posture: FH, RS, Increased kyphosis- posture is POOR- unable to correct with verbal cues or tacitle cues due to pain. Palpation: tender to light touch throughout shoulder- unable to palpate effectively. ROM: AROM: Flexion: 110 degrees, Abd: 105 degrees: IR: to belt line ER: 60 degrees. AAROM with cane: flexion: 160 degrees, Abd: 170 degrees with pain. Elbow/wrist/environmental conservation professor: wnl. Cervical: wfL reports pain with rotation to the left and BS to the left. Strength: scap: poor, Isometric shoulder: 4/5 with pain, Elbow: 4/5 with pain, Wrist/Clerical Transcriber: WNL. Impingement: positive, - Goals Goal 1:: Patient will be I with HEP and progression Goal Time Frame: 4-6 Weeks Goal 2:: Patient will maintain proper posture t/o tx session to demo increased core s/s. Goal Time Frame: 4-6 Weeks Goal 3:: Patient will demo full AROM of the right shoulder Goal Time Frame: 4-6 Weeks - Rehabilitation Potential Physical Therapy Diagnosis: Patient presents with hypomobility- she has decreased ROM, strength and muscular endurance leading to poor posture and increased pain with ADL's. Rehabilitation Potential: Fair - Anticipated Interventions Therapeutic Exercise to Include: Strength training, Endurance training, Body mechanics, Postural training, In an aquatic setting, Scapular Strength/Stabilization For the Purpose of:: To improve muscle performance and motor function Thank you for the opportunity to evaluate your patient. For Medicare and Medicare HMO plans, please review the plan of care and approve it. It will need to be FAXED BACK to us at [phone] for Medicare purposes. For Medicare only, by signing this I certify the plan of care. Please let me know if there are questions or concerns regarding this plan of care. Physician Signature: Date:
--- NOTE | 2018-06-28 10:44 | HP.PTDCSUM ---
HP - PT D/C Summary It has been my pleasure to treat FELICIANO HERNANDEZ under orders from Emerson Julio, for the diagnosis of Right Shoulder Pain for a total of 11 visit(s). Discharge Date: Please see the following information for a summary of their discharge status. - Subjective Subjective: The right shoulder is good to go- no problems- she has full ROM- and can do everything with it. The left shoulder is the problem - Pain R hip Pain Intensity (Out of 10): 0 R shouilder Pain Intensity (Out of 10): 0 LUE Pain Intensity (Out of 10): Unrated - Overall Improvement % Improvement: 100 - Objective Objective/Function: Posture: FH, RS, guards the left UE. Palpation: not tender. ROM: WNL in all planes. Strength: 5/5 throguhout Scap: fair minus - Goals Goal 1:: Patient will be I with HEP and progression Goal Progress: Goal Met Goal 2:: Patient will maintain proper posture t/o tx session to demo increased core s/s. Goal Progress: Progressing Goal 3:: Patient will demo full AROM of the right shoulder Goal Progress: Goal Met - Plan Plan: Discharge to I HEP - D/C Information If there are questions or concerns regarding this patient's physical therapy, please feel free to call me at [phone]. Thank you for the referral of this patient. Sincerely, SUMAYA ReyesT
== END 2018-06-28 10:50 | disposition home or self-care (01) ==
LOC: PT 10:30
PROVIDERS: Family Provider Preventive Medicine Occupational Medicine; PCP Preventive Medicine Occupational Medicine; Referring Provider Orthopaedic Surgery; Visit Provider Orthopaedic Surgery
DX: M75.101 Unspecified rotator cuff tear or rupture of right shoulder, not specified as traumatic (principal); M75.21 Bicipital tendinitis, right shoulder
CPT/HCPCS: 97110; 97113; 97161; 97164

== ENCOUNTER 2018-11-12 20:58 | Emergency (ER) | payer MEDICAID, SELFPAY ==
[2018-11-12 21:00] VITALS: BP 127/61; PULSE 77; RESP 16; TEMP 36.8; O2SAT 97; BMI 21.9
--- NOTE | 2018-11-12 21:15 | RAD_ITS ---
STUDY: X-RAY - LEFT KNEE REASON FOR EXAM: Female, 48 years old. Posttraumatic pain TECHNIQUE: 4 view(s) of the knee. COMPARISON: None. FINDINGS: Normal visualized distal femur. Normal visualized proximal tibia and fibula. Normal proximal tibiofibular articulation. Normal medial femorotibial compartment. Normal lateral femorotibial compartment. Normal patellofemoral articulation. The soft tissue structures are unremarkable. RAD/Knee 4 or More Views IMPRESSION: Normal x-ray examination of the knee. Electronically Signed: Anam White MD at 21:49 EDT , Service support ,
--- NOTE | 2018-11-12 21:16 | ED.DCSUM_ITS ---
History of Present Illness Chief Complaint: Fall Detail of Chief Complaint: Right hip pain status post fall Informant: Patient Onset: Today Current Severity: Moderate Maximum Severity: Severe Narrative: Patient presents after a mechanical fall at home. She states she landed on her left side but has pain to her right hip. EMS had documented her hip to be shortened and rotated. She received fentanyl in route. Patient states she did strike her head but no loss of consciousness. She is very minimal headache currently. She does have some mild left knee pain and states she is had problems with that in the past. Past Medical History - Allergies and Home Meds Allergies/Adverse Reactions: Allergies cranberry Allergy (Verified 05/21/18 12:05) Swelling mustard Allergy (Verified 05/21/18 12:05) Unknown oxycodone [From Roxicodone] Allergy (Verified 05/21/18 12:05) Hives fluoxetine [From Prozac] Adverse Reaction (Verified 05/21/18 12:05) Other MAKES ME SLEEP lactose Adverse Reaction (Verified 05/21/18 12:05) Nausea/Vom/Diarrhea nut - unspecified Adverse Reaction (Verified 05/21/18 12:05) Other I TALK LIKE A ARUNA Primary Care Physician: Edson Head DO [Primary Care Provider] - Prior records reviewed: Yes Past Medical History: - - Reviewed Surgical History: cholecystectomy, - - Gynecologic/ovaries Lives: Spouse/ Significant Other Smoking Status: Current every day smoker Review of Systems General: Denies: Chills, Fever Eyes: Denies: Visual changes - bilaterally ENT: Denies: Bilateral ear pain Cardiovascular: Denies: Chest pain Respiratory: Denies: Dyspnea Gastrointestinal: Denies: Abdominal pain, Nausea, Vomiting Musculoskeletal: Reports: Arthralgias, Extremity Pain. Denies: Neck pain, Back pain Skin: Denies: Rash Neurological: Reports: Headache. Denies: Parasthesia - Right leg Hematologic: Denies: Easy bruising, Easy bleeding Allergy: Denies: Uticaria Physical Exam Vital Signs/Narrative: Vital Signs Temp Pulse Resp BP Pulse Ox 11/12/18 21:00 98.2 F 77 16 127/61 H 97 Inital Vital Signs reviewed: Yes General: Well nourished, Well developed Head: Normocephalic ENT: Moist mucous membranes Neck: Supple Cardiovascular: Regular rate, Regular rhythm Respiratory: No distress, CTA bilaterally Abdomen: Soft, Nontender Extremities: Tenderness - Tenderness palpation around the right hip. The time of my examination leg lengths appear equal. She also has tenderness around the left knee with no significant edema. Skin: Normal color Neurological: Alert, Oriented x3, - - Patient has strong distal pulses. She reports slight decreased sensation to light touch in the right lower extremity (he can feel me touching her leg but states it does not feel normal). Psychological: Normal affect Diagnostic/Tx/Re-eval Impressions Knee X-Ray 11/12/18 21:15 IMPRESSION: Normal x-ray examination of the knee. Electronically Signed: Anam White MD at 21:49 EDT , Service support , Hip/Pelvis X-Ray 11/12/18 21:30 IMPRESSION: Degenerative changes of the right hip and possible old posttraumatic change. No evidence for acute fracture or dislocation Electronically Signed: Anam White MD at 21:50 EDT , Service support , Lower Extremity CT 11/12/18 22:46 IMPRESSION: Moderate to severe degenerative changes of the right hip, unchanged. There is no acute displaced fracture or dislocation. Electronically Signed: Nathalia Lema MD at 23:41 EDT , Service support , Pelvis CT 11/12/18 22:46 IMPRESSION: Degenerative changes as above appear stable. There is no acute displaced fracture or dislocation. Electronically Signed: Nathalia Lema MD at 23:37 EDT , Service support , 11/12/18 21:15 Knee 4 or More Views [RAD] Stat 11/12/18 21:30 HIP, UNI W/ Pelvis 2-3 Views [RAD] Stat 11/12/18 22:46 CT Lower [Extremity Lower without Contra] [CT] Stat CT Pel [Pelvis without IV Contrast] [CT] Stat Laboratory Results 11/12/18 11/12/18 11/12/18 21:10 21:10 21:47 WBC 6.6 RBC 4.59 Hgb 13.9 Hct 41.7 MCV 90.8 MCH 30.3 MCHC 33.3 RDW Std Deviation 45.0 H RDW Coeff of [place]man 13.4 Plt Count 189 MPV 10.0 Immature Gran % (Auto) 0.600 Neut % (Auto) 49.3 Lymph % (Auto) 35.5 [place] % (Auto) 9.8 Eos % (Auto) 3.9 Baso % (Auto) 0.9 Absolute Neuts (auto) 3.3 Absolute Lymphs (auto) 2.35 Nucleated RBC % 0 Sodium Cancelled 141 Potassium Cancelled 3.8 Chloride Cancelled 112 H Carbon Dioxide Cancelled 24.0 Anion Gap Cancelled 5 BUN Cancelled 10 Creatinine Cancelled 0.73 Estim Creat Clear Calc Cancelled 72.92 Est GFR (MDRD) Af Amer Cancelled 108 Est GFR (MDRD) Non-Af Cancelled 89 BUN/Creatinine Ratio Cancelled 13.7 Glucose Cancelled 123 H Calcium Cancelled 9.1 - Medical Decision Making Patient was given fentanyl with EMS. She was given morphine and Zofran by myself. Initial x-rays were unremarkable. Patient was still unable to move her right leg or hip secondary to pain. CT scans of the pelvis and hip continue to show no sign of fracture. On repeat evaluation patient is sleeping comfortably. Pain is improved. She does feel that she can get around with a walker at home. She will begin a prescription for [place] and will follow up with her orthopedic physician and [place]. ED Disposition - Plan for ED Patient: Disposition: Home or Assisted Living Diagnosis: Contusion of right hip Instructions: FALL, Mechanical, Hip Contusion Prescriptions: Hydrocodone Bitart/Apap 5-325 [[place] 5MG-325MG] 1 tablet PO Q6H PRN PRN 3 Days #10 tablet PRN Reason: Pain Additional Instructions: Follow-up with your orthopedic doctor in [place].
--- NOTE | 2018-11-12 21:30 | RAD_ITS ---
STUDY: X-RAY - PELVIS AND RIGHT HIP REASON FOR EXAM: Female, 48 years old. Posttraumatic pain TECHNIQUE: 3 views of the pelvis and hip. COMPARISON: None. FINDINGS: There is a non-specific bowel gas pattern. Normal visualized soft tissue structures. Normal bilateral iliac wings, sacroiliac joints and visualized sacrum. Normal bilateral superior and inferior pubic rami. Normal pubic symphysis. Normal bilateral ischial tuberosities. Normal visualized femoral head. There is cortical thickening of the femoral neck possibly due to old trauma. Prominent acetabular spurring.. Normal hip joint. RAD/HIP, UNI W/ Pelvis 2-3 Views IMPRESSION: Degenerative changes of the right hip and possible old posttraumatic change. No evidence for acute fracture or dislocation Electronically Signed: Anam White MD at 21:50 EDT , Service support ,
[2018-11-12] MEDS: 0.9% Normal Saline 1,000 ML 15 ML IV (21:39)
[2018-11-12 21:41] LABS: Absolute Lymphocyte Count 2.35 X10^3/uL (0.83-4.51); Absolute Neutrophil Count 3.3 X10^3/uL (2.0-7.7); Basophil# 0.06 X10^3/uL; Basophil% 0.9 % (0-1); Eosinophil# 0.26 X10^3/uL; Eosinophils% 3.9 % (0-5); Hematocrit 41.7 % (37-47); Hemoglobin 13.9 g/dL (12.0-15.0); Lymphocyte # 2.35 X10^3/ul (4.0); Lymphocyte % 35.5 % (19-41); Mean Corp Hgb Conc 33.3 g/dL (32-36); Mean Corpuscular Hgb 30.3 pg (27.0-32.0); Mean Corpuscular Volume 90.8 fL (81-99); Monocyte# 0.65 X10^3/uL; Monocyte% 9.8 % (0-10); NRBC Flagged by Analyzer 0 % (0-5); Neutrophil # 3.26 X10^3/uL (2.7-7.7); Neutrophil % 49.3 % (47-70); Platelet Count 189 K/mm3 (150-450); RBC Distribution Width CV 13.4 % (11.6-14.6); Red Blood Count 4.59 M/mm3 (4.2-5.4); White Blood Count 6.6 K/mm3 (4.4-11.0)
[2018-11-12] MEDS: Morphine 4 MG/ML Syringe IV (21:52)
[2018-11-12] MEDS: Ondansetron 4 MG/2 ML Vial IV (21:55)
[2018-11-12 22:07] LABS: Anion Gap 5 (5-15); BUN 10 mg/dL (7-18); BUN/Creat Ratio 13.7 RATIO (10-20); Calcium,Total 9.1 mg/dL (8.5-10.1); Chloride 112 mmol/L (98-107); Creatinine, Serum 0.73 mg/dL (0.55-1.02); EST Glomerular Filtration Rate 89 mL/min (>60); Est Glom Filt Rate - Afr Amer 108 mL/min (>60); Estimated Creatinine Clearance 72.92 ml/min; Glucose 123 mg/dL (74-106); Potassium 3.8 mmol/L (3.5-5.1); Sodium Level 141 mmol/L (136-145)
--- NOTE | 2018-11-12 22:46 | CT_ITS ---
STUDY: CT RIGHT HIP REASON FOR EXAM: Female, 48 years old. Fall, right hip pain RADIATION DOSAGE (If Supplied By Facility): CTDIvol = ( 13.02 ) mGy, DLP = ( 289.14 ) mGycm TECHNIQUE: Transaxial imaging of the pelvis and bilateral hips was performed with oral contrast, and without intravenous administration of contrast material. COMPARISON: CT abdomen pelvis 05/21/2018 FINDINGS: RIGHT HIP There is moderate articular narrowing of the right hip joint. Large spurring involving the anterior and posterior lateral acetabulum. Mild sclerosis of the fovea capitis. Spurring along the femoral head. Normal right femoral neck and intertrochanteric region. Mild subcutaneous soft tissue infiltration at the greater trochanter level. No focal hematoma. CT/Extremity Lower without Contra IMPRESSION: Moderate to severe degenerative changes of the right hip, unchanged. There is no acute displaced fracture or dislocation. Electronically Signed: Nathalia Lema MD at 23:41 EDT , Service support ,
--- NOTE | 2018-11-12 22:46 | CT_ITS ---
STUDY: CT PELVIS WITHOUT CONTRAST REASON FOR EXAM: Female, 48 years old. Fall, right hip pain RADIATION DOSAGE (If Supplied By Facility): CTDIvol = ( 12.95 ) mGy, DLP = ( 336.29 ) mGycm TECHNIQUE: Transaxial imaging of the pelvis was performed with oral contrast, and without intravenous administration of contrast material. Individualized dose optimization techniques were used for this CT. COMPARISON: CT abdomen pelvis 05/22/2019 819 FINDINGS: Normal urinary bladder. Normal visualized small intestine. Normal visualized colon. There is no pelvic fluid. There is no pelvic mass lesion or lymphadenopathy. Normal visualized pelvic arteries. Normal abdominal wall. There are diffuse degenerative changes of the visualized lower lumbar spine, right greater than left moderate degenerative changes of the hip joint, mild degenerative changes of the sacroiliac joints.. CT/Pelvis without IV Contrast IMPRESSION: Degenerative changes as above appear stable. There is no acute displaced fracture or dislocation. Electronically Signed: Nathalia Lema MD at 23:37 EDT , Service support ,
[2018-11-12 23:00] VITALS: BP 115/65; PULSE 92; RESP 16; O2SAT 96
[2018-11-12 23:45] VITALS: BP 112/62; PULSE 92; RESP 14; O2SAT 97
== END 2018-11-13 00:16 | disposition home or self-care (01) ==
PROVIDERS: Emergency Provider Emergency Medicine; Family Provider Preventive Medicine Occupational Medicine; PCP Preventive Medicine Occupational Medicine
DX: S70.01XA Contusion of right hip, initial encounter (principal); S09.90XA Unspecified injury of head, initial encounter; W19.XXXA Unspecified fall, initial encounter; Y93.9 Activity, unspecified; Y92.009 Unspecified place in unspecified non-institutional (private) residence as the place of occurrence of the external cause; Y99.9 Unspecified external cause status; Z79.899 Other long term (current) drug therapy; F17.200 Nicotine dependence, unspecified, uncomplicated; Z88.5 Allergy status to narcotic agent; Z90.49 Acquired absence of other specified parts of digestive tract
CPT/HCPCS: 36415; 72192; 73502; 73564; 73700; 80048; 85025; 96374; 96375; 99285; J7030; A4216; J2405

== ENCOUNTER 2018-12-02 10:00 | Outpatient (RCR) | payer MEDICAID, SELFPAY ==
--- NOTE | 2018-11-01 10:14 | HP.PTEVAL_ITS ---
Patient's Visit Information FELICIANO HERNANDEZ is a 48 year old F referred to Physical Therapy by Edson Head DO with a diagnosis of Back Pain with Abnormal Walking. Date of Evaluation: 11/01/18 Physical Therapist: Crystal Chen DPT - Visit Plan Frequency: 2x /Week Duration: 4 Weeks Plan: Aquatic- focus on LE and core s/s - Subjective Findings: Patient reports that she started having back pain 2-3 months ago- started seeing chiro in [place] and now her back does not hurt and now she is worried about her feet rolling outwards but she is much better. Chiro told her to get a new pair of shoes. Her Chiropractor feels that she is okay to start therapy. Worst: 8/10 Agg: twisting, cats getting under her feet and walking. Best: 0/10 Eases: chiropractor, sitting down with all chairs, doing the exercise the chiro gave her. Sees the chiro 1x a week at this point. Pain is located along the low back- no radiating pain. Both feet go numb- comes and goes- depends on if she elevates her feet they go numb. Reports the pain is dull and achy. X-rays taken by the chiro- no MRI. She wants to do water therapy. Sleep: not disturbed but she is very stressed. Her and her significant other are having problems with her roomate which is very stressful. PMHx/Meds: no changes since last time she was here - Objective Posture: FH, RS- mild increased kyohosis does not correct with verbal or tactile cues and reports I just can't- she does lay flat. Gait: no deviaton noted can ambulate with erect posture. HR/TR: bilaterally diminished by 50%. SLS: unable without UE A. Palpation: tender along paraspinals in the lumbar spine. ROM: Lumbar: all motions diminished by 50% with pain, Hip/Knee/Ankle: WFL. Strength: Core: poor, Hip: 3/5, Knee: 3/4, Ankle: 3/5- pt reports significant pain with all strength testing. Sensation: WNL - Goals Goal 1:: Patient will be I with HEP and progression. Goal Time Frame: 4-6 Weeks Goal 2:: Patient will maintain proper posture t/o tx session to demo increased core s/s Goal Time Frame: 4-6 Weeks Goal 3:: Patient will demo 4/5 strength in LE Goal Time Frame: 4-6 Weeks - Rehabilitation Potential Physical Therapy Diagnosis: Patient presents with hypomobility- she demonstrates decreased ROM, strength, flex and muscular endurance leading to increased pain with ADL's. Rehabilitation Potential: Fair - Anticipated Interventions Patient/Client Instruction: Educate patient on: Benefits of Fitness Program Therapeutic Exercise to Include: Strength training, Endurance training, Balance training, Coordination, Agility training, Body mechanics, Postural training, Flexibilty training, In an aquatic setting, Passive ROM, Active ROM For the Purpose of:: To improve muscle performance and motor function Thank you for the opportunity to evaluate your patient. For Medicare and Medicare HMO plans, please review the plan of care and approve it. It will need to be FAXED BACK to us at [phone] for Medicare purposes. For Medicare only, by signing this I certify the plan of care. Please let me know if there are questions or concerns regarding this plan of care. Physician Signature: Date:
--- NOTE | 2019-03-13 13:05 | HP.PT.NRP ---
HP - Discharge Summary (1) - Patient Information FELICIANO HERNANDEZ was seen in my office for initial evaluation on 11/01/18. The following Plan of Care was established for this patient: Initial Frequency: 2x /Week Initial Duration: 4 Weeks - Anticipated Interventions Patient/Client Instruction: Educate patient on: Benefits of Fitness Program Therapeutic Exercise to Include: Strength training, Endurance training, Balance training, Coordination, Agility training, Body mechanics, Postural training, Flexibilty training, In an aquatic setting, Passive ROM, Active ROM For the Purpose of:: To improve muscle performance and motor function This patient was last seen in our office . Pertinent comments regarding their Physical therapy will appear below: Patient has not attended Physical Therapy in over 4 weeks, appropriate for d/c at this time and return to MD for further evaluation as needed. At this point I will be discontinuing this patient from physical therapy. I would be happy to see this patient again in the future if found appropriate by the physician. Thank you! SUMAYA ReyesT
== END 2018-12-02 19:00 | disposition home or self-care (01) ==
LOC: PT 10:00
PROVIDERS: Family Provider Preventive Medicine Occupational Medicine; PCP Preventive Medicine Occupational Medicine; Referring Provider Preventive Medicine Occupational Medicine; Visit Provider Preventive Medicine Occupational Medicine
DX: M19.90 Unspecified osteoarthritis, unspecified site (principal); R26.9 Unspecified abnormalities of gait and mobility; M62.830 Muscle spasm of back
CPT/HCPCS: 97113; 97161

== ENCOUNTER → 2019-02-05 14:52 | Outpatient (CLI) | payer MEDICAID, SELFPAY ==
--- NOTE | 2019-02-05 15:00 | MRI_ITS ---
STUDY: MRI BRAIN WITH AND WITHOUT CONTRAST REASON FOR EXAM: Female, 48 years old. ATAXIA coordination issues TECHNIQUE: Standardized multiplanar fat and water weighted pulse sequences were obtained. IV Dotarem 10 was administered for the contrast portion of the examination. COMPARISON: Head CT dated April 04, 2017. MRI of the brain dated September 18, 2016 FINDINGS: Normal size of the ventricles and extra-axial spaces for the patient's age. Normal white matter tracts of the supratentorial brain. There is no evidence for recent intracranial ischemia or other cause of cytotoxic edema on diffusion weighted imaging (DWI). Normal T2* images of the brain without demonstrated susceptibility artifact. There is no demonstrated hemosiderin stain. There are no demyelinating plagues of the supratentorial brain, brainstem or cerebellum. There are no findings suspicious for multiple sclerosis (MS). Normal bilateral basal ganglia. Normal thalami. There is no extra-axial fluid accumulation. Normal flow voids within the major intracranial circulation suggesting patency by spin echo criteria. Normal venous enhancement. There is no enhancing intra-axial or extra-axial abnormality. Normal sella turcica, pituitary gland, infundibular stalk, optic chiasm and hypothalamus. Normal tectal plate and pineal gland. Normal midbrain, david and medulla. Normal cerebellum. Normal basal cisterns. Normal bilateral temporal bones. Normal bilateral internal auditory canals. No demonstrated orbital abnormality, within the constraints of a routine brain study. Normal visualized paranasal sinuses. Normal calvarium and skull base. Normal visualized soft tissue structures. Normal visualized upper cervical spine. MRI/Brain W/WO Contrast IMPRESSION: Unremarkable unenhanced and enhanced MRI of the brain. Electronically Signed: Michael Carvalho MD at 19:31 EST , Service support ,
== END ==
PROVIDERS: Family Provider Preventive Medicine Occupational Medicine; PCP Preventive Medicine Occupational Medicine; Referring Provider Psychiatry & Neurology Neurology; Visit Provider Psychiatry & Neurology Neurology
DX: R27.0 Ataxia, unspecified (principal)
CPT/HCPCS: 70553; A9575

== ENCOUNTER 2019-06-05 14:30 | Outpatient (RCR) | payer MEDICAID, SELFPAY ==
--- NOTE | 2019-02-10 13:34 | HP.PTEVAL ---
Patient's Visit Information FELICIANO HERNANDEZ is a 48 year old F referred to Physical Therapy by Emerson Julio with a diagnosis of PAIN IN LEFT KNEE. Date of Evaluation: 02/10/19 Physical Therapist: Teto Alba, PT, Cert MDT, OCS - Visit Plan Frequency: 2x /Week Duration: 4 Weeks Plan: PT INTERVENTIONS WITH GRADED ROM/STRENGTHENING EX'S QUADS/HAMS/HIP ,NUSTEP. MODLATIES PRN - Subjective Findings: This 48 y/o female presents to physical therapy with pain in left knee.Patient fell October when patient noticed knee pain . Patient was seen for PT balance and back sttrengthening. Patient seen DR MRI showed edema in knee. Recommend PT ,patient had injection cortizone didnt help. . Aggravating factors walking,squatting,stairs ,kneeling painfull. Patient sates seeing neurologist in left knee with parathesia in knee . Recommended knee brace. Patient reports knee gives way. . Patient has difficulty sleeping at night. Patient has difficulty with ADL's and housework tasks. Patient condition affects QOL. Patient uses rollator for extended distances. SOCIAL: Friend. VOCATION: disablity - Pain Left Knee Pain Intensity (Out of 10): 8 Pain Intensity Range: 10 - Objective POSTURE: mild foward posture. GAIT: mild antalgic gait with decrease standce and swing phase. NEURO: c/o parathesia left leg. PALPATION: tender grossly knee. PROPRIOCEPTION: poor. AROM: 0-110 degrees supine knee with knee brace. MMT: quads/hams 3+/5,hip flexion 3+/5,hip abd 3+/5 ,ankle 4/5. STAIRS: one step at a time. FLEXABLITY: hams mod tight - Goals Goal 1:: Patient to be HEP Goal Time Frame: 4-6 Weeks Goal 2:: Patient to decrease pain in left knee by 40% to improve function. Goal Time Frame: 4-6 Weeks Goal 3:: Patient to improve AROM knee 0-115 degrees or > to improve functio n Goal Time Frame: 4-6 Weeks Goal 4:: Patient to improve strength quads/hams/hip tto 4-/5 to improve function with gait Goal Time Frame: 4-6 Weeks Goal 5:: Patient to improve LFES score by 5 points or > to improve QOL. Goal Time Frame: 4-6 Weeks - Rehabilitation Potential Physical Therapy Diagnosis: This patient has left knee pain with decrease ROM,strength,impairs gait ,balance and stairs with thus causes deficits with ADL'S and housework tasks thus benifit from skilled PT. Rehabilitation Potential: Fair - Anticipated Interventions Patient/Client Instruction: Educate patient on: Condition, Plan of Care For the Purpose of:: To decrease pain, To increase ROM, To improve muscle performance and motor function, To improve ability to perform ADL's, To increase tolerance to activity/condition/position, To improve ability of physical actions for home/community/work/leisure, To improve health of tissue, To decrease soft tissue restriction, To increase flexibility/ROM, To improve endurance, To improve safety with gait, To improve ability to perform tasks related to life management Therapeutic Exercise to Include: Strength training, Balance training, Flexibilty training, Active ROM Comment: quads/hams/hip For the Purpose of:: To decrease pain, To increase ROM, To improve muscle performance and motor function, To improve ability to perform ADL's, To increase tolerance to activity/condition/position, To improve ability of physical actions for home/community/work/leisure, To decrease soft tissue restriction, To increase flexibility/ROM, To reduce risk of recurrence, To improve ability to perform tasks related to life management TENS: Yes IF ES: Yes Cryotherapy (ice pack, ice massage): Yes Thermo therapy (hot pack): Yes For the Purpose of:: To decrease pain, To decrease swelling/inflammation, To improve nutrient delivery to tissue, To increase oxygenation perfusion, To improve health of tissue, To decrease soft tissue restriction Thank you for the opportunity to evaluate your patient. For Medicare and Medicare HMO plans, please review the plan of care and approve it. It will need to be FAXED BACK to us at [phone] for Medicare purposes. For Medicare only, by signing this I certify the plan of care. Please let me know if there are questions or concerns regarding this plan of care. Physician Signature: Date:
--- NOTE | 2019-05-05 11:09 | HP.PTREVAL ---
Emerson Julio, It has been my pleasure to treat FELICIANO HERNANDEZ over the last 8 visits for PAIN IN LEFT KNEE. Please see the progress note below for an update on the physical therapy plan of care! Subjective: Patient stated seen wants to continue . Patient conts to have ,tripped on knee because of pain and weakness.No more injection. Patient was provided predsone . Pateint pain affects sleeping .Pateint has pain in knee able and hands which patient drops . Pateint pain affects community walking. MEDS MELOCICAM,NARCO Objective/Function: + SIGNS UNABLE SQUAT /KNEELING. STAIRS: one step at a time. AROM: 5-120 degrees knee flexion painfull. FLEXABLITY: hams mod loss. BUE AROM: limitd with pain. MMT: quads/hams 4-/5,hip flexion 3+/5,hip abd 3/5,BUE 3+/5 elbow painfull. GAIT: antalgic gait Plan Plan: PATIENT COULd BNIFIT FROM PMD DUE TO LIMIATIONS WITH GAIT COMMINITY WEAKNESS ,PAIN.ENDURANCE. CONT WITH POC 2XWEEK FOR 4 WEEKS FOR HEP,ROM.STRENGHTHENING,HIP KNEE,ENDURANCE MODALTIES NEEDED Goals Goal 1:: Patient to be HEP Goal Time Frame: 4-6 Weeks Goal Progress: Progressing Goal 2:: Patient to decrease pain in left knee by 40% to improve function. Goal Time Frame: 4-6 Weeks Goal Progress: Progressing Goal 3:: Patient to improve AROM knee 0-115 degrees or > to improve functio n Goal Time Frame: 4-6 Weeks Goal Progress: Goal Met Goal 4:: Patient to improve strength quads/hams/hip tto 4/5 to improve function with gait Goal Time Frame: 4-6 Weeks Goal Progress: Progressing Goal 5:: Patient to improve LFES score by 5 points or > to improve QOL. Goal Time Frame: 4-6 Weeks Goal Progress: Progressing Anticipated Interventions Patient/Client Instruction: Educate patient on: Condition, Plan of Care For the Purpose of:: To decrease pain, To increase ROM, To improve muscle performance and motor function, To improve ability to perform ADL's, To increase tolerance to activity/condition/position, To improve ability of physical actions for home/community/work/leisure, To improve health of tissue, To decrease soft tissue restriction, To increase flexibility/ROM, To improve endurance, To improve safety with gait, To improve ability to perform tasks related to life management Therapeutic Exercise to Include: Strength training, Balance training, Flexibilty training, Active ROM Comment: quads/hams/hip For the Purpose of:: To decrease pain, To increase ROM, To improve muscle performance and motor function, To improve ability to perform ADL's, To increase tolerance to activity/condition/position, To improve ability of physical actions for home/community/work/leisure, To decrease soft tissue restriction, To increase flexibility/ROM, To reduce risk of recurrence, To improve ability to perform tasks related to life management TENS: Yes IF ES: Yes Cryotherapy (ice pack, ice massage): Yes Thermo therapy (hot pack): Yes For the Purpose of:: To decrease pain, To decrease swelling/inflammation, To improve nutrient delivery to tissue, To increase oxygenation perfusion, To improve health of tissue, To decrease soft tissue restriction Please do not hesitate to contact me at [phone] by phone or if you have questions or concerns regarding this new plan of care! Sincerely, Teto Alba, PT, Cert MDT, OCS
--- NOTE | 2019-07-02 15:33 | HP.PT.NRP ---
FELICIANO HERNANDEZ was seen in my office for initial evaluation on 02/10/19. The following Plan of Care was established for this patient: Initial Frequency: 2x /Week Initial Duration: 4 Weeks Patient/Client Instruction: Educate patient on: Condition, Plan of Care For the Purpose of:: To decrease pain, To increase ROM, To improve muscle performance and motor function, To improve ability to perform ADL's, To increase tolerance to activity/condition/position, To improve ability of physical actions for home/community/work/leisure, To improve health of tissue, To decrease soft tissue restriction, To increase flexibility/ROM, To improve endurance, To improve safety with gait, To improve ability to perform tasks related to life management Therapeutic Exercise to Include: Strength training, Balance training, Flexibilty training, Active ROM For the Purpose of:: To decrease pain, To increase ROM, To improve muscle performance and motor function, To improve ability to perform ADL's, To increase tolerance to activity/condition/position, To improve ability of physical actions for home/community/work/leisure, To decrease soft tissue restriction, To increase flexibility/ROM, To reduce risk of recurrence, To improve ability to perform tasks related to life management TENS: Yes IF ES: Yes Cryotherapy (ice pack, ice massage): Yes Thermo therapy (hot pack): Yes For the Purpose of:: To decrease pain, To decrease swelling/inflammation, To improve nutrient delivery to tissue, To increase oxygenation perfusion, To improve health of tissue, To decrease soft tissue restriction This patient was last seen in our office 06/05/19. Pertinent comments regarding their Physical therapy will appear below: Patient seen for left knee pain for ROM and strength. Patient conts with pain uses brace . Patient d/c due to coronovirus. At this point I will be discontinuing this patient from physical therapy. I would be happy to see this patient again in the future if found appropriate by the physician. Thank you! Teto Alba, PT, Cert MDT, OCS
== END 2019-06-05 19:00 | disposition home or self-care (01) ==
LOC: PT 14:30
PROVIDERS: Family Provider Preventive Medicine Occupational Medicine; PCP Preventive Medicine Occupational Medicine; Referring Provider Orthopaedic Surgery; Visit Provider Orthopaedic Surgery
DX: M25.562 Pain in left knee (principal)
CPT/HCPCS: 97035; 97110; 97162; 97164; 97530

== ENCOUNTER 2019-09-17 11:46 | Emergency (ER) | payer MEDICAID, SELFPAY ==
[2019-09-17 11:48] VITALS: BP 124/53; PULSE 73; RESP 15; TEMP 36.6; O2SAT 98; BMI 23.9
[2019-09-17 12:21] VITALS: O2SAT 99
--- NOTE | 2019-09-17 12:26 | RAD_ITS ---
STUDY: X-RAY - CERVICAL SPINE REASON FOR EXAM: Female, 48 years old. Fell over dog onto the concrete pain left side TECHNIQUE: 3 view(s) of the cervical spine were obtained. COMPARISON: None FINDINGS: Normal anterior atlantoaxial articulation. Normal odontoid process. There is straightening of the normal cervical lordosis. Normal vertebral bodies and endplates. Normal disc space heights. Normal visualized intervertebral neuroforamina. The soft tissue structures are unremarkable. RAD/Cerv Spine 2 or 3 Views IMPRESSION: Straightening of the normal cervical lordosis. Electronically Signed: Kranthi Carne, at 13:26 EDT , Service support ,
--- NOTE | 2019-09-17 12:28 | RAD_ITS ---
STUDY: X-RAY - LEFT SHOULDER REASON FOR EXAM: Female, 48 years old. Fell over dog onto the concrete pain left side TECHNIQUE: 4 view(s) of the shoulder. COMPARISON: None. FINDINGS: There is mild degenerative arthrosis of the glenohumeral articulation. There has been resection of the distal portion of the left clavicle. Normal acromion. Normal humeral head and visualized proximal humerus. The soft tissue structures are unremarkable. Normal visualized pulmonary apex. RAD/Shoulder min 2 Views IMPRESSION: Mild degenerative changes of the glenohumeral joint. Prior resection of the distal portion of the left clavicle. Electronically Signed: Kranthi Crane, at 13:27 EDT , Service support ,
--- NOTE | 2019-09-17 12:45 | RAD_ITS ---
STUDY: X-RAY - LEFT KNEE REASON FOR EXAM: Female, 48 years old. Fell over dog onto the concrete pain left side TECHNIQUE: 2 view(s) of the knee. COMPARISON: None. FINDINGS: Normal visualized distal femur. Normal visualized proximal tibia and fibula. Normal proximal tibiofibular articulation. Normal medial femorotibial compartment. Normal lateral femorotibial compartment. Normal patellofemoral articulation. The soft tissue structures are unremarkable. RAD/Knee 1 or 2 Views IMPRESSION: Normal x-ray examination of the knee. Electronically Signed: Kranthi Crane, at 13:27 EDT , Service support ,
--- NOTE | 2019-09-17 13:35 | ED.RN ---
per radiation protection engineer report pt assisted to br when down for xrays previously with slow shuffley gait but balanced.
--- NOTE | 2019-09-17 14:20 | ED.VIS.GEN ---
History of Present Illness Chief Complaint: Fall Informant: Patient Narrative: Patient is a 48-year-old female who presents to the emergency department after she tripped over her dog today. He states that she landed on her left shoulder and left hip. Did not ambulate after the event. Denies hitting her head but braced her neck and was having neck pain afterward. She has not tried taking anything for this. Times are exacerbated by moving her neck, shoulder and hip. She is also complaining of left knee pain where she has a superficial abrasion. She is not on any anticoagulation. Has any chest pain, shortness of breath or abdominal pain. No back pain. No loss of sensation in her extremities. Past Medical History - Allergies and Home Meds Allergies/Adverse Reactions: Allergies cranberry Allergy (Verified 09/17/19 11:52) Swelling mustard Allergy (Verified 09/17/19 11:52) Unknown oxycodone [From Roxicodone] Allergy (Verified 09/17/19 11:52) Hives fluoxetine [From Prozac] Adverse Reaction (Verified 09/17/19 11:52) Other MAKES ME SLEEP lactose Adverse Reaction (Verified 09/17/19 11:52) Nausea/Vom/Diarrhea nut - unspecified Adverse Reaction (Verified 09/17/19 11:52) Other I TALK LIKE A ARUNA Primary Care Physician: Edson Head DO [Primary Care Provider] - 3-5 Days Surgical History: cholecystectomy, - - Gynecologic/ovaries Smoking Status: Current some day smoker Review of Systems General: Denies: Chills, Fever, Sweats Eyes: Denies: Visual changes - bilaterally, Diplopia ENT: Denies: Rhinorrhea, Sore throat Cardiovascular: Denies: Chest pain, Palpitations Respiratory: Denies: Dyspnea, Cough, Dyspnea on exertion Gastrointestinal: Denies: Abdominal pain, Nausea, Vomiting, Diarrhea, Melena, Hematochezia Genitourinary: Denies: Dysuria, Hematuria, Frequency Musculoskeletal: Reports: Neck pain, Extremity Pain - Left shoulder and left hip, left knee. Denies: Back pain, Swelling Skin: Denies: Rash, Wounds Neurological: Denies: Headache, Weakness, Numbness Physical Exam Vital Signs/Narrative: Vital Signs Temp Pulse Resp BP Pulse Ox 09/17/19 12:21 99 09/17/19 11:48 97.9 F 73 15 124/53 H 98 Inital Vital Signs reviewed: Yes General: Well nourished, Well developed, No Acute Distress Head: Normocephalic, Atraumatic Eyes: Perrl, EOMI ENT: Moist mucous membranes, No rhinorrhea Neck: Supple, Nontender - No midline spine tenderness or step-off sign. Cardiovascular: Regular rate, Regular rhythm, No murmurs Respiratory: No distress, CTA bilaterally, Chest nontender Abdomen: Soft, Nontender, Nondistended, Normal bowel sounds Back: Nontender, Normal Inspection Extremities: Nontender, No edema, - - 2+ radial pulse on right, 1+ on the left. She states that this is chronic for her. Good capillary refill in all 4 extremities. Skin: Normal color, - - Superficial abrasions without any active bleeding over the left shoulder and left knee Neurological: Alert, Oriented x3, Cranial nerves II-XII grossly intact, Normal Strength, Normal Sensation Psychological: Normal affect, Normal Mood Diagnostic/Tx/Re-eval - Medical Decision Making Patient presented to the emergency department for mechanical fall. She not have any loss of consciousness. Imaging obtained of the shoulder, hips, knee was obtained which did not show any acute traumatic findings. She was able to ambulate around the emergency department. Arthritic changes which she is aware of. She needs to follow-up with her PCP. Warning signs and symptoms for which to return to the emerge department reviewed with her. She understands and is agreeable with this plan. Will discharge home in stable condition. ED Disposition - Plan for ED Patient: Disposition: Home or Assisted Living Diagnosis: Contusion, shoulder /upper arm, Contusion of knee, Hip pain Instructions: ED SOFT TISSUE CONTUSION, ED Mechanical Fall Referrals: Edson Head DO [Primary Care Provider] - 3-5 Days
--- NOTE | 2019-09-17 14:25 | RAD_ITS ---
STUDY: X-RAY - PELVIS AND LEFT HIP REASON FOR EXAM: Female, 48 years old. Left hip pain after fall TECHNIQUE: 3 views of the pelvis and hip. COMPARISON: None. FINDINGS: There is a non-specific bowel gas pattern. Normal visualized soft tissue structures. Normal bilateral iliac wings, sacroiliac joints and visualized sacrum. Normal bilateral superior and inferior pubic rami. Normal pubic symphysis. Normal bilateral ischial tuberosities. Normal visualized femoral head. There is osteoarthritic spur formation of the acetabular rim. There is moderate articular joint space narrowing of the hip. Moderate osteoarthritis of the right hip. RAD/HIP, UNI W/ Pelvis 2-3 Views IMPRESSION: Osteoarthritis of both hip joints. Electronically Signed: Kranthi Crane, at 14:51 EDT , Service support ,
[2019-09-17 15:27] VITALS: BP 124/57; PULSE 64; RESP 16; O2SAT 99
[2019-09-17] MEDS: HYDROcodone Bitartrate/Apap 5/325 Tablet PO (15:50)
--- NOTE | 2019-09-17 16:11 | ED.RN ---
pt ambulated to br on own and out in waiting room to wait for to come. no diff obs. limping gait obs.
== END 2019-09-17 16:10 | disposition home or self-care (01) ==
PROVIDERS: Emergency Provider Emergency Medicine; PCP Preventive Medicine Occupational Medicine
DX: S40.012A Contusion of left shoulder, initial encounter (principal); S80.212A Abrasion, left knee, initial encounter; M54.2 Cervicalgia; W01.0XXA Fall on same level from slipping, tripping and stumbling without subsequent striking against object, initial encounter; Y93.9 Activity, unspecified; Y92.9 Unspecified place or not applicable; Y99.9 Unspecified external cause status; Z79.899 Other long term (current) drug therapy
CPT/HCPCS: 72040; 73030; 73502; 73560; 99284; A4216

== ENCOUNTER 2019-12-29 07:30 | Outpatient (RCR) | payer MEDICAID, SELFPAY ==
--- NOTE | 2019-10-22 10:41 | HP.PTEVAL_ITS ---
Patient's Visit Information FELICIANO HERNANDEZ is a 48 year old F referred to Physical Therapy by MASSIEL MCNEILL with a diagnosis of Right Hip Pain. Date of Evaluation: 10/22/19 Physical Therapist: Crystal Chen DPT - Visit Plan Frequency: 3x /Week Duration: 3 Weeks Plan: Aquatic- focus on LE and core strength/stabilization with functional mobility - Subjective Patient reports that she has right hip pain- MD wants an mri but is not allowed until she does therapy. Fell in the [place] and landed on a rock about a month or two ago and it flared her up pain- she has a tendancy of falling. She has had hip pain for years. Pain is located on the lateral aspect of the hip- went to the ER and they told her the OA in her hi had gotten worse- he may have to do a hip replacement. Pain radiates to the foot- which comes and goes. She reports that she is never comfortable. Worst: 12/26 Agg: moving her hip. She gets kevin horses in it and its hard to sleep. Eases: sitting on her left hip. Best: 10. Reports the pain is achy and stabbing. Does have N/T in the toes- but thinks its dut to hammer toe. Spray Blender does not want her to stoop or squat down. She is having her a full hysterectomy 11/10/[address] Jalloh and will be in the hospital overnight. X-rays on the hip but no MRI currently. Has not had any injections or medication recently. Has had injections prior but it did not help. Sleep: disturbed- hard to get comfortable- right side sleeper. 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 Gait: antalgic- decreased stance on the right LE with poor heel/toe pattern. Poor trunk rotation. SLS: 3 sec then LOB. ROM: Lumbar: flexion: hands to toes then crawls back up to standing using her arms, extn: neutral SB: WFL reports pain, Rot: decreased by 50% bilaterally, Hip: flexion: 90 degrees, abd: 30 degrees, extn: neutral Ir/er:neutral, Knee: 0-130 degrees, Ankle: WNL. Palpation: tender throughout to light palpation. Strength: Core: fair Hip: 3/5, Knee: 4+/5 with pain, ankle: 5/5. Flex: HS: severe, Gastroc: severe. Special Test: SAW: positive, Scour: positive. All movement makes her jump and report pain - Goals Goal 1:: Patient will be I with HEP and progression Goal Time Frame: 4-6 Weeks Goal 2:: Patient will ambulate >300 feet with a normalized gait pattern Goal Time Frame: 4-6 Weeks Goal 3:: Patient will asc/desc 8 stairs recip with 1 HR Goal Time Frame: 4-6 Weeks Goal 4:: Patient will report 0/10 pain for 1 week in the right hip Goal Time Frame: 4-6 Weeks - Rehabilitation Potential Physical Therapy Diagnosis: Patient presents with hypomobility- she has decreased ROM, strength, flex and muscular endurance leading to increased pain with ADL's Rehabilitation Potential: Fair - Anticipated Interventions Patient/Client Instruction: Educate patient on: Benefits of Fitness Program Therapeutic Exercise to Include: Strength training, Endurance training, Balance training, Agility training, Body mechanics, Postural training, Flexibilty training, Gait and locomotor training, Neuromotor development, In an aquatic setting, Passive ROM, Active ROM, Dynamic Lumbar Stabilization, Scapular Strength/Stabilization For the Purpose of:: To improve muscle performance and motor function Thank you for the opportunity to evaluate your patient. For Medicare and Medicare HMO plans, please review the plan of care and approve it. It will need to be FAXED BACK to us at [phone] for Medicare purposes. For Medicare only, by signing this I certify the plan of care. Please let me know if there are questions or concerns regarding this plan of care. Physician Signature: Date:
--- NOTE | 2019-12-15 15:57 | HP.PT.NRP ---
FELICIANO HERNANDEZ was seen in my office for initial evaluation on 10/22/19. The following Plan of Care was established for this patient: Initial Frequency: 3x /Week Initial Duration: 3 Weeks Patient/Client Instruction: Educate patient on: Benefits of Fitness Program Therapeutic Exercise to Include: Strength training, Endurance training, Balance training, Agility training, Body mechanics, Postural training, Flexibilty training, Gait and locomotor training, Neuromotor development, In an aquatic setting, Passive ROM, Active ROM, Dynamic Lumbar Stabilization, Scapular Strength/Stabilization For the Purpose of:: To improve muscle performance and motor function This patient was last seen in our office . Pertinent comments regarding their Physical therapy will appear below: Patient has not returned to PT in over 6 weeks- appropriate for d/c and return to MD for further evaluation as needed. At this point I will be discontinuing this patient from physical therapy. I would be happy to see this patient again in the future if found appropriate by the physician. Thank you! Crystal Chen DPT
== END 2019-12-29 19:00 | disposition home or self-care (01) ==
LOC: PT 07:30
PROVIDERS: PCP Preventive Medicine Occupational Medicine
DX: M25.559 Pain in unspecified hip (principal)
CPT/HCPCS: 97113; 97161; 97164

== ENCOUNTER 2020-01-23 09:40 | Day surgery (SDC) | payer MEDICAID, SELFPAY ==
[2019-12-30 10:30] VITALS: BMI 30.7
[2020-01-23] VITALS (10 sets, daily range): BP systolic 61–136; BP diastolic 39–65; PULSE 54–89; RESP 16; TEMP 36.1–36.7; O2SAT 93–99; BMI 22.1
--- NOTE | 2020-01-23 08:59 | HP_ITS ---
I have re-examined the patient. There are no clinical changes since date of exam. Intake Vital Signs 12/30/19 Height 5 ft 2.6 in 12/30/19 Weight: 171 lb Intake Visit Reasons: Right Hand Accompanied by: Self Is patient in pain?: Yes Pain scale (1-10): 5 Allergies cranberry Allergy (Verified 12/30/19 10:31) Swelling mustard Allergy (Verified 12/30/19 10:31) Unknown oxycodone [From Roxicodone] Allergy (Verified 12/30/19 10:31) Hives fluoxetine [From Prozac] Adverse Reaction (Verified 12/30/19 10:31) Other lactose Adverse Reaction (Verified 12/30/19 10:31) Nausea/Vom/Diarrhea nut - unspecified Adverse Reaction (Verified 12/30/19 10:31) Other Medications Ropinirole HCl [Requip] 2 mg PO BID 03/25/16 [History Confirmed 09/17/19] Meloxicam [Mobic] 7.5 mg PO DAILY PRN 11/09/16 [History Confirmed 09/17/19] albuterol sulfate 2.5 mg INHALATION Q4H PRN ml 03/08/17 [History Confirmed 12/30/19] Baclofen 10 mg PO PRN PRN 03/25/17 [History Confirmed 09/17/19] Dicyclomine HCl 10 mg PO TID 05/08/18 [History Confirmed 09/17/19] Omeprazole [Prilosec] 10 mg PO BID 05/08/18 [History Confirmed 09/17/19] albuterol sulfate 90 mcg/actuation aerosol inhaler 2 puff INHALATION Q4H PRN #1 device 11/12/18 [Rx Confirmed 12/30/19] [facility] Medical History (Updated 09/18/19 @ 00:00 by Background [place]) Barretts esophagus (Chronic) Left foot pain (Acute) Puncture wound of foot excluding toes without complication (Acute) Arthritis (Chronic) Asthma (Chronic) DDD (degenerative disc disease) (Chronic) Emphysema of lung (Chronic) GERD (gastroesophageal reflux disease) (Chronic) Heart murmur (Chronic) Seasonal allergic rhinitis (Chronic) Tobacco abuse (Chronic) Surgical History (Updated 05/23/18 @ 10:[address] Tiff Rouse MD) H/O shoulder surgery (Resolved) H/O skin graft (Resolved) History of ear surgery (Resolved) Removal of gallstones (Resolved) S/P removal of ovarian cyst (Resolved) Social History (Updated 01/02/20 @ 12:[address] Catalina Gutierrez, ) household members: spouse housing: house Smoking Status: Current some day smoker tobacco type: cigarettes second hand exposure: Yes alcohol intake: current alcohol intake frequency: holidays/special occasions only Alcohol type: wine substance use type: marijuana HPI Right Hand: Surgical H&P: Yes Details: Parts of this documentation were recorded by a scribe, this documentation accurately reflects the service provided and the decisions made by me, Dr. Catalina Gutierrez, 12/30/19 1023. FELICIANO HERNANDEZ is a 49 year old F here today to establish as a new patient. C/o trigger fingers. Right hand: first, third and fourth metacarpal. Left hand, all metacarpals are effected. Patient is left hand dominate. Fifth metacarpal on left hand was once jammed in a ladder this year. Denies previous injuries and surgeries. Reports numbness, stiffness and tingling. 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 Pain is rated 5/10 from the pain scale. Patient has tried injections before for other areas, and patient would not like injections today. Could not complete medication reconciliation d/t patient not being aware of what she is currently taking. Patient does have to pop fingers to straighten them. Denies wearing a brace and tapping qhs. Patient does exercises with playdough at home. Has not had relief from steroid injections. ROS Const Reports system reviewed and no additional complaints, except as docu, Denies chills, Denies fatigue, Denies fever(s) Card Reports system reviewed and no additional complaints, except as docu, Denies chest pain, Denies shortness of breath Resp Reports system reviewed and no additional complaints, except as docu, Denies chest congestion, Denies cough, Denies shortness of breath GI Reports system reviewed and no additional complaints, except as docu, Denies abdominal pain, Denies constipation, Denies incontinent of stools, Denies loose stools Reports system reviewed and no additional complaints, except as docu, Reports urinary incontinence Musc Reports system reviewed and no additional complaints, except as docu, Reports joint pain, Reports joint swelling, Reports limited joint movement, Reports numbness, Reports stiffness, Reports tingling Skin/Breast Reports system reviewed and no additional complaints, except as docu, Denies dry skin, Denies redness, Denies lesions, Denies new lesions, Denies non-healing lesions, Denies itching, Denies rash, Denies skin ulcer, Denies sores, Denies wounds Neuro Yes system reviewed and no additional complaints, except as docu, Yes numbness, Yes radiating pain (to right elbow), Yes tingling Endo Denies fatigue Ortho Exam General General: Yes no acute distress Neurologic: Yes alert, Yes oriented x3 Psychologic: Yes reasonable and appropriate Right Wrist/Hand Skin/Wound: No Swelling, No Ecchymosis A1 marcus trigger: Yes WRIST: palpable triggering of right middle finger Left Wrist/Hand Skin/Wound: No Swelling, No Ecchymosis Assessment & Plan Problems 1. Trigger finger, right middle finger M65.331 Plan Obtained X-rays of patient's BL hands. Personally reviewed x-rays. There is no obvious fracture, dislocation, or lucency noted. Patient educated that she has arthritis of her hands. She has trigger finger of the right middle finger. Treatment options are do nothing or steroid injection or A1 marcus release. Patient wishes to proceed with right A1 marcus release. Reviewed the pre- operative plans with the patient. Risks and benefits of the procedure were fully explained, including but not limited to infection, neurovascular injury, continued pain, arthritis, stiffness, need for further surgery, re-injury, DVT, PE, general risks of anesthesia, and loss of limb or life. The patient understands all the risks and does wish to proceed with written consent. We discussed the current risk associated COVID-19. While it is understood that there is a community spread of COVID 19 the risk of fawn COVID-19 while at [facility] is very low, however, the risk cannot be completely mitigated because of the community spread of the disease. We discussed in detail the risk of exposure to and or potential harm posed by the COVID-19 virus with having a surgery/procedure at this time versus the risk of delaying the surgery/procedure. Is not possible to know either the risk of delaying the surgery procedure or chance of getting an infection with perfect accuracy, but a joint decision was made to proceed at this time with a schedule surgery/procedure as indicated on the consent form. Patient was notified that we will need to comply with any screening or testing [facility] wishes to perform or that surgery may be delayed for any positive results. Follow up post op or sooner if pain, swelling, numbness or associated symptoms, or concerns develop. All questions answered. Patient in agreement of plan. I would like to thank Dr. Edson Lara for this referral. Orders Orders: Hand Min 3 Views 12/30/19 M79.641, M79.642 Coding Level of Care Code 09717 Diagnoses Trigger finger, right middle finger M65.331
[2020-01-23] MEDS: Lactated Ringers 1,000 ML 100 ML IV (10:55)
--- NOTE | 2020-01-23 13:57 | PCM.DC.ORTHO ---
Discharge Diet: No Restrictions - keep dressing intact, call with concerns Discharge Activity: May Not Drive May shower in (days): 1 Ice area for (Minutes): 20 - Every hour while awake. Weight Bearing Status: Weight bearing as tolerated Keep extremity elevated above heart level: Operative Extremity Call your doctor if your incision/area has: Continuous Slow Oozing, Sudden Increased Bleeding, Increased Pain/ Swelling, Increased Redness, Foul Smelling Discharge Call your doctor if you observe: Fever of 101 or Higher, Coldness, Increased Pain, Numbness or Tingling, Change in Color, Calf discomfort Allergies/Adverse Reactions: Allergies cranberry Allergy (Verified 01/23/20 10:48) Swelling mustard Allergy (Verified 01/23/20 10:48) Unknown oxycodone [From Roxicodone] Allergy (Verified 01/23/20 10:48) Hives fluoxetine [From Prozac] Adverse Reaction (Verified 01/23/20 10:48) Other MAKES ME SLEEP lactose Adverse Reaction (Verified 01/23/20 10:48) Nausea/Vom/Diarrhea nut - unspecified Adverse Reaction (Verified 01/23/20 10:48) Other I TALK LIKE A ARUNA Medications to take at Discharge Ropinirole HCl [Requip] 2 mg PO BID 03/25/16 Meloxicam [Mobic] 7.5 mg PO DAILY PRN 11/09/16 albuterol sulfate 2.5 mg INHALATION Q4H PRN ml 03/08/17 Dicyclomine HCl 10 mg PO TID 05/08/18 albuterol sulfate 90 mcg/actuation aerosol inhaler 2 puff INHALATION Q4H PRN #1 device 11/12/18 Chlorpromazine HCl 25 mg PO QHS 01/15/20 Dextroamphetamine/Amphetamine [Adderall 20 mg Tablet] 20 mg PO DAILY 01/15/20 Pantoprazole Sodium [Protonix] 40 mg PO DAILY 01/15/20 Oxycodone HCl/Acetaminophen [Percocet 5/325] 1 - 2 tablet PO Q6H PRN PRN 5 Days #10 tablet 01/23/20 The following prescriptions were given: Oxycodone HCl/Acetaminophen [Percocet 5/325] 1 - 2 tablet PO Q6H PRN PRN 5 Days #10 tablet PRN Reason: Pain Transmission Status: Sent to [facility] Primary Care Physician: Edson Head DO [Primary Care Provider] - Test Results: Test results from this visit will be discussed in further detail at your follow-up appointment, if applicable. Please Follow Up With: Catalina Gutierrez DO - [phone]
--- NOTE | 2020-01-23 13:58 | OP.PCM_ITS ---
Report of Operation Date of Procedure: 01/23/20 Pre-Operative Diagnosis: right middle finger trigger Post-Operative Diagnosis: same Surgery/Procedure Performed:: right middle finger a1 marcus release Type of Anesthesia:: General Anesthesiologist: Darío Varghese Estimated Blood Loss (mL): min Fluids Replaced: 500cc Description of Procedure: Preoperative note Patient is a 49 year-old female who came into my office as a new patient this week with a locked in quite painful right third middle finger. Due to the fact that it was locking quite painful failed conservative treatment, patient decided to operate so she can regain function and decrease her pain and locking. Risks benefits and alternatives surgery discussed with patient. Risks including but not limited to blood loss, blood clot, infection, neurovascular injury, failure procedure, loss of life and loss of limb. Patient is aware would like proceed with right trigger finger middle release A1 marcus release. Operative note Patient seen and examined preoperative holding area. Right middle finger was marked. Patient is brought to the operating room and placed supine on the operating table. Sign, anesthesia, antibiotics were administered. The right arm was prepped and draped in usual sterile fashion. Timeout was performed. We marked out our incision at the A1 marcus of the right middle finger. We was about a centimeter and a half for length. We used a 15 blade to cut the skin tenotomies to dissect down to the level of the A1 marcus. We then released the A1 marcus both proximally and distally we then brought the tendons out of the incision and flex and extend at the DIP of the right middle finger to ensure that we had no further locking which we did not have. We then irrigated the incision with copious amounts of sterile saline. Incision was closed with interrupted 4-0 nylon stitches. Tourniquet was deflated for total working time of 6 minutes. Patient tolerated procedure well there are no complications, patient transferred to recovery room in stable condition. Postoperative note Use hand as tolerated but keep incision clean and dry Discussed with family Follow-up in 2 weeks for dressing change and suture removal OTC family This note was generated with [employer] software. It may contain incorrect words, spelling, and punctuation that were not noted in checking the note before signing.
[2020-01-23] MEDS: Cefazolin 2 GM in 0.9% Normal Saline 100 ML IV (14:15)
[2020-01-23] MEDS: Mupirocin Ointment 22gm Tube 1 APPLIC (14:35)
[2020-01-23] MEDS: HYDROcodone Bitartrate/Apap 5/325 Tablet PO (16:15)
== END 2020-01-23 16:54 | disposition home or self-care (01) ==
LOC: SDC 09:41 → AC 10:02
PROVIDERS: PCP Preventive Medicine Occupational Medicine; Referring Provider Orthopaedic Surgery; Visit Provider Orthopaedic Surgery
PROC: (CPT 26055; principal; 2020-01-23 12:05)
DX: M65.331 Trigger finger, right middle finger (principal); Z20.828 Contact with and (suspected) exposure to other viral communicable diseases; J45.909 Unspecified asthma, uncomplicated; K21.9 Gastro-esophageal reflux disease without esophagitis; F32.9 Major depressive disorder, single episode, unspecified; F17.210 Nicotine dependence, cigarettes, uncomplicated; Z79.1 Long term (current) use of non-steroidal anti-inflammatories (NSAID); Z79.899 Other long term (current) drug therapy
CPT/HCPCS: 01810; 26055; 87426; C9803; J7120; J2405

== ENCOUNTER 2020-02-23 11:30 | Outpatient (RCR) | payer MEDICAID, SELFPAY ==
[2020-02-11 11:12] VITALS: BMI 23.9
--- NOTE | 2020-02-16 16:30 | HP.OTEVAL_ITS ---
Patient's Visit Information FELICIANO HERNANDEZ is a 49 year old F, referred to Occupational Therapy by Dr. Catalina Gutierrez DO, with a diagnosis of R middle finger release. Date of Evaluation: 02/16/20 Occupational Therapist: Andry Bella - Subjective Pt presents with some soreness in middle finger and very tight. Pt's pres ent during session. Pt underwent middle finger marcus release 01/23/2020. 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 No hearing aides currently. Wears glasses. Pt very anxious throughout session. - ADLs Dressing: Bra, Socks, Shoes Fasteners: Tie shoes Comments: Difficulty with item checked Eating: Cut food Comments: Uses L hand mostly Comments: No concerns noted Comments: No concerns noted Grooming: Comb hair Kitchen: Chop with knife, Peel fruits & vegetables, Open jars, Open bottle caps, Ziplock bags Comments: Difficulty with tasks marked- will use L hand when possible Household: Vacuum, Sweep/mop, Laundry Comments: Difficulty with gripping- doesn't have washer so handwash in bathtub Comments: No concerns Miscellaneous: Use cell phone, Open doors/Including car door, Juanjose/knit/needlework Comments: Pt reports she is L hand dominant. Likes to play video games. - Pain R middle finger 0 Pain Intensity Range: 10 - Objective Pt in good mood- very anxious throughout session. - ROM Wrist: R/L WNL CMC: R/L 0/70 PIP: R Middle digit PIP 0/30 DIP: R Middle digit DIP 0/15 ROM Comments: R 1st, 3rd, 4th digits PIP joints WNL, L PIP/DIP joints and L/R MP joints WNL - Strength Exchange Trouble Shooter: L 30#, R not tested this date Lateral Pinch: L 10#, R not tested this date Tripod Pinch: L 12#, R not tested this date Tip-to-Tip Pinch: L 8#, R not tested this date Strength Comments: R not tested this date as increased c/o pain noted when attempting - Sensation Middle: 4.93 Sensation Comments: In between PIP/DIP joints on R middle finger only felt 4.93- at tip and base of middle finger felt 4.74 - Quick DASH-Disab of Arm,Shoulder& Hand Quick DASH Score: 50.0000 - Goals Goal:: Pt will increase R special forces senior sergeant/pinch strength by 5-10# to increase IND with ADL/IADLs Goal:: Pt will increase R middle finger PIP/DIP flexion/extension by 15-20 degrees in order to increase functional use to complete fine motor tasks Goal:: Pt will report pain no more than 2/10 with use of R hand with ADL/IADL tasks Goal:: Pt will be able to case picker small objects without dropping them in order to increase IND with ADL/IADL tasks Goal:: Pt will increase sensitivity to R middle finger by d/c to complete self care tasks with increased feeling Goal:: Pt will demonstrate understanding of scar management by d/c to decrease risk of scar adhesions. Goal:: Pt will demonstrate understanding of joint protection techniques and adaptive equipment to decrease joint stress while performing ADL/IADL tasks by d/c. Goal:: Pt will be IND with HEP upon d/c. - Rehabilitation General Assessment: Assessed ROM, MMT, sensation and special forces senior sergeant/pinch strength this date. Surgical site assessed and skin intact- no open wounds. Provided soft tissue mobilitization to scar to decrease stiffness and increase joint mobility with good tolerance noted. Education provided on soaking hand in warm water up to 2x/day for 10-15 minutes to decrease stiffness/pain with good understanding verbalized. Educated on tendon gliding exercises to complete 1-2x/day to increase joint mobility with good understanding verbalized. Rehabilitation Potential: Good - Anticipated Interventions A/AAROM/PROM, Strengthening, Scar Care, Massage, Triggerpoint Release, Desensitization, Modalities, Joint Protection/Energy Conservation, Ergonomic Education, Fine Motor Coord/Ruddy, Education re Skin Care and Precautions, Education re Self Massage Techniques, Home Program - Visit Plan Frequency: 1-2x /Week Duration: 4-6 Weeks General Plan: To increase AROM, special forces senior sergeant/pinch strength and sensation, as well as increase IND with ADL/IADLs TEXT: Thank you for the opportunity to evaluate your patient. For Medicare and Medicare HMO plans, please review the plan of care and approve it. It will need to be FAXED BACK to us at [phone] for Medicare purposes. Please let me know if there are questions or concerns regarding this plan of care. Physician Octaviano blackwood: Date:
--- NOTE | 2020-02-23 11:51 | HP.OTDCSUM ---
It has been my pleasure to treat FELICIANO HERNANDEZ under orders from Dr. Catalina Gutierrez DO, for the diagnosis of R MF trigger finger release for a total of 3 visit(s). Please see the following information for a summary of their discharge status. % Improvement: 80 Objective/Function: right MF MCP 0/85. right MF PIP -3/100. right MF DIP 0/50. pt demo return of full composite fist. right technology program manager strength 44# Patient Goals: Regain Strength, Decrease Pain, Decrease Swelling/Stiffness, Improve Fine Motor Skills, Use Hand/Wrist/Arm Normally Again, Decrease Tingling/Numbness, Increase ROM, Be More Independent in ADLS Goal:: Pt will increase R technology program manager/pinch strength by 5-10# to increase IND with ADL/IADLs Goal:: Pt will increase R middle finger PIP/DIP flexion/extension by 15-20 degrees in order to increase functional use to complete fine motor tasks Goal:: Pt will report pain no more than 2/10 with use of R hand with ADL/IADL tasks Goal:: Pt will be able to sweet pickled fruit maker small objects without dropping them in order to increase IND with ADL/IADL tasks Goal:: Pt will increase sensitivity to R middle finger by d/c to complete self care tasks with increased feeling Goal:: Pt will demonstrate understanding of scar management by d/c to decrease risk of scar adhesions. Goal:: Pt will demonstrate understanding of joint protection techniques and adaptive equipment to decrease joint stress while performing ADL/IADL tasks by d/c. Goal:: Pt will be IND with HEP upon d/c. Plan: D/C with HEP. desensitization. joint protection dusty. Discharge Comments: pt was seen for 3 OT visits following a right MF trigger finger release. Pts ROM has returned and her right technology program manager strength is 14# greater than unaffected hand. pt is to cont. with HEP of scar desensitization, joint protection and use of hand with ADLs and IADLs. Pt is having hip sx possible next week and agrees with HEP. If there are questions or concerns regarding this patient's occupational therapy, please fell free to call me at [phone]. Thank you for the referral of this patient. Sincerely, Regina Benavidez, OTR/L, CHT
== END 2020-02-23 14:11 | disposition home or self-care (01) ==
LOC: OT 11:30
PROVIDERS: PCP Preventive Medicine Occupational Medicine; Referring Provider Orthopaedic Surgery; Visit Provider Orthopaedic Surgery
DX: Z47.89 Encounter for other orthopedic aftercare (principal)
CPT/HCPCS: 97035; 97140; 97166; 97530

== ENCOUNTER → 2020-03-08 10:24 | Outpatient (CLI) | payer MEDICAID, SELFPAY ==
[2020-02-11 11:12] VITALS: BMI 23.9
--- NOTE | 2020-03-08 17:11 | PFTCOMP_ITS ---
COMPLETE PULMONARY FUNCTION TEST INTERPRETATION Brief HPI: Patient is a 49 year old female, currently under the care of Dr. Ludwig, who presents to [facility] for complete pulmonary function tests secondary to diagnosis of asthma. Respiratory therapist reports good effort and reproducible results. Interpretation: Forced expiration spirometry shows no large airways obstructive ventilatory defect with an FEV1 of 92% predicted. There is no significant bronchodilator response by strict ATS criteria. Spirograms are of good quality and plateau slowly, indicating slowly emptying areas of the lungs. The respiratory flow volume loop shows decreased expiratory flow rates at high lung volumes consistent with small airways obstruction. Lung volumes by body plethysmography show a normal total lung capacity at 4.94 L, 106% predicted. All other lung volumes are within normal limits. Diffusion capacity by carbon monoxide is normal at 90% predicted. The airway resistance is normal. Compared to previous pulmonary function tests from 08/30/2017, there has been improvement in air trapping. Impression: Normal pulmonary function studies with some stigmata of possible small airways disease and significant improvement compared to 2018.
== END ==
PROVIDERS: PCP Preventive Medicine Occupational Medicine; Referring Provider Internal Medicine Critical Care Medicine; Visit Provider Internal Medicine Critical Care Medicine
DX: J45.909 Unspecified asthma, uncomplicated (principal); F17.210 Nicotine dependence, cigarettes, uncomplicated
CPT/HCPCS: 94060; 94726; 94729

== ENCOUNTER 2020-09-27 12:30 | Outpatient (RCR) | payer MEDICAID, SELFPAY ==
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
--- NOTE | 2020-08-19 11:25 | HP.PTREVAL ---
SUSHANT LAZARO, It has been my pleasure to treat FELICIANO HERNANDEZ over the last 19 visits for Right Posterior THR. Please see the progress note below for an update on the physical therapy plan of care! Subjective: Patient reports that she is making progress but does not feel she is quite there yet. She still has a lot of trouble with balance on the right LE. MD wants her to continue therapy. She is having problems walking long distances and standing in a store are still challenging. Objective/Function: Posture: FH,RS- can correct but does not maintain. Gait: decreased stance on the right LE- toes turned out to the side when ambulation good olman. Palpation: not tender to touch. Observation: incision healing well no s/s of infection. Stairs: recip with 1 HR HR/TR: no increase in pain. SLS: 6-8 seconds with increased muslce activation and sway ROM: hip/knee/ankle: WFL. Hip: 90 degrees flexion to 10 degrees extension. Strength: core: fair, hip: flex:17 lbs of force- reports pain abd/extn: 4/5, Extension:38.6 add/abd: 4+/5, IR/ER: not tested , knee: flex/ext: 4/5, ankle: DF/PF: 5/5. Flexibility: hamstring: moderate, gastroc: moderate. TU.47 WOMAC:36.45 Sit to Stand: 18 in 30 sec Plan Plan: 08/19/2020: Continue aquatic therapy 2x a week for 4 weeks for encouraging WB and progressing towards goals. *f/u with supervising PT. Pt still lacking endurance with WBing through RLE. 07/26/2020: 2x4 weeks in aquatic- continue to progress towards goals. Posterior THR (week of May 03) - precautions lifted 08/11 (except for crossing ankle over other knee BLAT). Focus on LE and core strength/stabiliation- pt has fear of movement. Modalities of heat/cold. Goals Goal 1:: Patient will be I with HEP and progression Goal Time Frame: 4-6 Weeks Goal 2:: Patient will asc/desc 8 stairs recip with 1 HR Goal Time Frame: 4-6 Weeks Goal 3:: Patient will ambulate >300 feet with a normalized gait pattern Goal Time Frame: 4-6 Weeks Goal 4:: Patient will SLS 15 sec without LOB or pain Goal Time Frame: 4-6 Weeks Goal 5:: Patient will perform 20 sit to stands in 30 seconds Goal Time Frame: 4-6 Weeks Anticipated Interventions Patient/Client Instruction: Educate patient on: Benefits of Fitness Program Therapeutic Exercise to Include: Strength training, Endurance training, Balance training, Agility training, Body mechanics, Postural training, Flexibilty training, Gait and locomotor training, Neuromotor development, Passive ROM, Active ROM, Dynamic Lumbar Stabilization, Scapular Strength/Stabilization For the Purpose of:: To improve muscle performance and motor function Functional Training to Include: ADL Training, Gait training For the Purpose of:: To improve ability to perform ADL's TENS: Yes Cryotherapy (ice pack, ice massage): Yes Thermo therapy (hot pack): Yes Ultrasound (thermal/non thermal): No For the Purpose of:: To decrease pain Please do not hesitate to contact me at [phone] by phone or if you have questions or concerns regarding this new plan of care! Sincerely, Crystal Chen DPT
--- NOTE | 2020-09-27 13:29 | HP.PTDCSUM ---
It has been my pleasure to treat FELICIANO HERNANDEZ referred by SUSHANT LAAZRO, with the diagnosis of Right Posterior THR for a total of 26 visit(s). Discharge Date: Please see the following information for a summary of their discharge status. Subjective: She reports that she still has some pain in her hip. The pain is along the outside and radiate down to the knee. Worst: 8/10. Nothing makes her feel better. She feels that when she walks more than a mile she gets a little clumsy. R hip Pain Intensity (Out of 10): 0 Lumbar Spine Pain Intensity (Out of 10): 0 % Improvement: 90 Objective/Function: Posture: good throughout Gait: decreased stance on the right LE- toes turned out to the side when ambulation good olman. Palpation: not tender to touch. Stairs: recip with no HR HR/TR: no increase in pain. SLS: 15 seconds with increased musclce activation and sway ROM: hip/knee/ankle: WFL. Hip: 90 degrees flexion to 10 degrees extension. Strength: core: fair, hip: flex:20 lbs of force- reports pain abd/extn: 4/5, Extension:15.0 add/abd: 4+/5, IR/ER: not tested , knee: flex/ext: 5/5, ankle: DF/PF: 5/5. Flexibility: hamstring: moderate, gastroc: moderate. TU.3 WOMAC:4.16 Sit to Stand: 18 in 30 sec Goal 1:: Patient will be I with HEP and progression Goal Progress: Goal Met Goal 2:: Patient will asc/desc 8 stairs recip with 1 HR Goal Progress: Goal Met Goal 3:: Patient will ambulate >300 feet with a normalized gait pattern Goal Progress: Progressing Goal 4:: Patient will SLS 15 sec without LOB or pain Goal Progress: Goal Met Goal 5:: Patient will perform 20 sit to stands in 30 seconds Goal Progress: Progressing Plan: 09/27/2020: Discharge to home exercise program If there are questions or concerns regarding this patient's physical therapy, please feel free to call me at [phone]. Thank you for the referral of this patient. Sincerely, Crystal Chen DPT
== END 2020-09-27 19:00 | disposition home or self-care (01) ==
LOC: PT 12:30
PROVIDERS: PCP Preventive Medicine Occupational Medicine
DX: M16.11 Unilateral primary osteoarthritis, right hip (principal); Z96.641 Presence of right artificial hip joint
CPT/HCPCS: 97110; 97113; 97161; 97164

== ENCOUNTER → 2021-01-14 12:43 | Outpatient (CLI) | payer MEDICAID, SELFPAY ==
--- NOTE | 2021-01-14 12:46 | US_ITS ---
EXAM: US RETROPERITONEAL COMPLETE, RENAL CLINICAL INDICATION: FLANK PAIN TECHNIQUE: Grayscale and color Doppler sonographic evaluation of the retroperitoneum was performed. This report was created using [employer] report [employer] technology. COMPARISON: None. FINDINGS: RIGHT KIDNEY: Unremarkable. No hydronephrosis. No shadowing calculus. No focal lesion. No perinephric collection is demonstrated. LEFT KIDNEY: Unremarkable. No hydronephrosis. No shadowing calculus. No focal lesion. No perinephric collection is demonstrated. BLADDER: No bladder wall thickening. US/Kidney and Bladder IMPRESSION: Unremarkable complete retroperitoneal ultrasound. Electronically Signed: Isak Daley MD ([place]) at 16:44 EDT , Service support ,
== END ==
PROVIDERS: PCP Preventive Medicine Occupational Medicine; Referring Provider Urology; Visit Provider Urology
DX: R10.9 Unspecified abdominal pain (principal)
CPT/HCPCS: 76770

== ENCOUNTER → 2021-01-17 10:25 | Outpatient (CLI) | payer MEDICAID, SELFPAY ==
--- NOTE | 2021-01-19 14:19 | PFT ---
INTRODUCTION: The patient is a 50-year-old female that presents for pulmonary function studies secondary to a diagnosis of asthma. Respiratory therapy reported good patient effort. Bronchodilators were used during testing. INTERPRETATION: Forced expiration spirometry demonstrates no evidence of a large airways obstructive ventilatory defect. There was no significant response to aerosolized bronchodilators. Spirograms are of good quality and plateau normally. Body plethysmography was performed and reveals lung volumes to be within normal limits. Diffusing capacity by single breath CO is also within normal limits. IMPRESSION: Grossly normal pulmonary function studies.
== END ==
PROVIDERS: PCP Preventive Medicine Occupational Medicine; Referring Provider Nurse Practitioner Acute Care; Visit Provider Nurse Practitioner Acute Care
DX: J45.909 Unspecified asthma, uncomplicated (principal)
CPT/HCPCS: 94060; 94726; 94729

== ENCOUNTER 2021-04-20 08:34 | Outpatient (CLI) | payer MEDICAID, SELFPAY ==
--- NOTE | 2021-04-20 08:37 | ART_ITS ---
Reason For Study: atherosclerosis of extremities w/intermittent claudication Procedure A bilateral lower extremity continuous wave Doppler with analog waveform analysis and ankle brachial indexes. Left Segmental Pressures Left brachial= 106mmHg. Left posterior tibial artery = 165mmHg. Left dorsalis pedis artery = 171mmHg. The left posterior tibial artery waveforms are triphasic. The left dorsalis pedis waveforms are triphasic. Right Segmental Pressures Right brachial= 141mmHg. Right posterior tibial artery = 169mmHg. Right dorsalis pedis artery = 166mmHg. The right posterior tibial artery waveforms are triphasic. The right dorsalis pedis waveforms are triphasic. Indices The right resting ankle brachial index is 1.2. The right ankle brachial index by the posterior tibial artery is 1.2. The right ankle brachial index by the dorsalis pedis is 1.18. The left resting ankle brachial index is 1.21. The left ankle brachial index by the posterior tibial artery is 1.17. The left ankle brachial index by the dorsalis pedis is 1.21. VL/Ankle Brachial Index Interpretation Summary No evidence occlussive disease at rest with bilateral triphasic flow and JAVIER 1. 2 right leg and left leg 1.21. Ordering Physician: MD Krishna Hernandez Referring Physician: Krishna Hernandez Performed By: Chelsea Brown RVAubrey, RDCS
--- NOTE | 2021-04-20 08:39 | CDU_ITS ---
Reason For Study: BILATERAL CAROTID ARTERY STENOSIS Rt. Velocities/BP Lt. Velocities/BP Prox CCA 96.9/16.0 cm/sec. Prox CCA 85.7/19.9 cm/sec. Mid CCA 72.1/12.1 cm/sec. Mid CCA 82.0/19.9 cm/sec. Dist CCA 62.5/*14.2 cm/sec. Dist CCA 93.0/21.7 cm/sec. Prox ICA 78.8/12.5 cm/sec. Prox ICA 82.0/23.6 cm/sec. Mid ICA 71.5/15.0 cm/sec. Mid ICA 87.5/25.4 cm/sec. Dist ICA 70.2/17.4 cm/sec. Dist ICA 103.9/32.7 cm/sec. Rt. ICA/CCA = 78.8/72.1=1.09. Lt. ICA/CCA = 103.9/82.0=1.27. Prox ECA 116.7/7.1 cm/sec. Prox ECA 87.5/10.8 cm/sec. Rt. Vert. 89.3/18.1 cm/sec. LT Vert - RETROGRADE FLOW. Rt. Brachial BP = 146/68 mmHg. Lt. Brachial BP = 107/60 mmHg. Right Extracranial There is homogeneous, smooth atherosclerotic plaque noted in the right common carotid artery. There is intimal thickening but no significant atherosclerotic plaque noted in the right internal carotid artery. There is intimal thickening but no significant atherosclerotic plaque noted in the right external carotid artery. Antegrade flow is noted in the right vertebral artery. Left Extracranial There is intimal thickening but no significant atherosclerotic plaque noted in the left common carotid artery. There is intimal thickening but no significant atherosclerotic plaque noted in the left internal carotid artery. There is homogeneous, smooth atherosclerotic plaque noted in the left external carotid artery. retrograde flow. Procedure Carotid Duplex 54560. This is a Carotid Duplex examination using B-mode, color flow and specral Doppler. Exam performed in department. VL/Carotid Duplex Ultrasound Interpretation Summary Mild (<50%) stenosis right extracranial internal carotid. Mild (<50%) stenosis left extracranial internal carotid. Flow within the right verterbral artery is antegrade. Flow wi thin the left verterbral artery is retrograde, consistent with a subclavian steal phenomenon. Ordering Physician: Krishna Hernandez Referring Physician: Edson Head Performed By: Chelsea Brown, ANUP, RVT
--- NOTE | 2021-04-20 08:42 | ART_ITS ---
Reason For Study: left arm pain, sctricture of artery Procedure A bilateral upper extremity continuous wave Doppler with analog waveform analysis and segmental pressures. Left Segmental Pressures Left brachial= 106mmHg. Left radial= 103mmHg. Left ulnar= 113mmHg. The left radial waveforms are monophasic. The left ulnar waveforms are monophasic. Right Segmental Pressures Right brachial= 146mmHg. Right radial= 165mmHg. Right ulnar= 165mmHg. The right radial waveforms are monophasic. The right ulnar waveforms are biphasic. Indices The right wrist-brachial index is 1.13. Rt wrist-brachial index by ulnar artery is 1.13. Rt wrist-brachial index by radial artery is 1.13. The left wrist-brachial index is 0.77. Lt wrist- brachial by ulnar artery is 0.77. Lt wrist-brachial index by radial artery is 0.71. VL/Ankle Brachial Index Interpretation Summary Right WBI 1.13 and left WBI 0.77. Left arm suggestive of proximal stenosis. Ordering Physician: MD Krishna Hernandez Referring Physician: Krishna Hernandez Performed By: Chelsea Brown RVT, [facility]
== END 2021-04-20 23:59 | disposition short-term general hospital (02) ==
PROVIDERS: PCP Preventive Medicine Occupational Medicine; Referring Provider Surgery Vascular Surgery; Visit Provider Surgery Vascular Surgery
DX: I65.23 Occlusion and stenosis of bilateral carotid arteries (principal); I77.1 Stricture of artery; I70.213 Atherosclerosis of native arteries of extremities with intermittent claudication, bilateral legs; M79.602 Pain in left arm; F17.200 Nicotine dependence, unspecified, uncomplicated; M19.90 Unspecified osteoarthritis, unspecified site; J45.909 Unspecified asthma, uncomplicated; K59.9 Functional intestinal disorder, unspecified; K21.9 Gastro-esophageal reflux disease without esophagitis; Z81.8 Family history of other mental and behavioral disorders; Z91.51 Personal history of suicidal behavior
CPT/HCPCS: 93880; 93922; 93931

== ENCOUNTER 2021-05-26 11:49 | Outpatient (CLI) | payer MEDICAID, SELFPAY ==
[2021-05-26 12:30] VITALS: PULSE 61; PULSE 73; PULSE 79; PULSE 84; PULSE 85; PULSE 86; PULSE 89; O2SAT 97; O2SAT 98
--- NOTE | 2021-05-27 13:28 | PCM.PSN.6M ---
PSN 6 Minute Walk Test 6 Minute Walk Test 6 Minute Walk Test: 6 Minute Walk Test PSN:6-Minute Walk Test Start: 05/26/21 12:42 Freq: Status: Active Protocol: [id number] Document 05/26/21 12:30 EW (Rec: 05/26/21 12:46 EW [id number]) 6 Minute Walk Test Date Performed 05/26/21 Time Performed 12:30 Height 5 ft 2 in Weight: 58.967 kg Weight in Pounds 130.[address]: Jessica Torres [employer] Assistive device used: None Pre-test Oxygen Delivery Method Room Air Pulse Ox (%) 98 Pulse Rate (60-100 beats/min) 61 Dyspnea Gerard Scale (0-10) 0 Exertion Gerard Scale (6-20) 6 1st minute Oxygen Delivery Method Room Air Pulse Ox (%) 98 Pulse Rate (60-100 beats/min) 86 2nd minute Oxygen Delivery Method Room Air Pulse Ox (%) 98 Pulse Rate (60-100 beats/min) 85 3rd minute Oxygen Delivery Method Room Air Pulse Ox (%) 98 Pulse Rate (60-100 beats/min) 84 4th minute Oxygen Delivery Method Room Air Pulse Ox (%) 98 Pulse Rate (60-100 beats/min) 89 5th minute Oxygen Delivery Method Room Air Pulse Ox (%) 97 Pulse Rate (60-100 beats/min) 85 6th minute Oxygen Delivery Method Room Air Pulse Ox (%) 98 Pulse Rate (60-100 beats/min) 79 Post-test Oxygen Delivery Method Room Air Pulse Ox (%) 98 Pulse Rate (60-100 beats/min) 73 Dyspnea Gerard Scale (0-10) 3 Exertion Gerard Scale (6-20) 12 Full Laps Walked 20 Partial Lap, Number of Tiles Walked 0 Total Distance Walked (ft) 1180 Interpretation Interpretation: The patient ambulated 1180 feet over the course of 6 minutes beginning on room air without assistive devices. Pretesting oxygen saturation was noted to be 98% on room air. With ambulation, the vu oxygen saturation was 97%. There was no significant exertional oxygen desaturation. Recommendations Recommendations: There is no indication for the use of supplemental oxygen at this time.
== END 2021-05-26 23:59 | disposition home or self-care (01) ==
LOC: PSN 11:50
PROVIDERS: PCP Preventive Medicine Occupational Medicine; Referring Provider Nurse Practitioner Acute Care; Visit Provider Nurse Practitioner Acute Care
DX: J45.909 Unspecified asthma, uncomplicated (principal)
CPT/HCPCS: 94618

== ENCOUNTER → 2022-02-06 | Outpatient (CLI) | payer MEDICAID, SELFPAY ==
--- NOTE | 2022-02-06 08:01 | RAD_ITS ---
INDICATION: DYSPHAGIA EXAMINATION/TECHNIQUE: Thick and thin barium oral contrast and gas bubbles were administered to the patient. Total Fluoroscopic Time: 30 seconds AND number of Fluoroscopic Images: 10 COMPARISON: None. FINDINGS: No masses or strictures are identified. Small hiatal hernia. The mucosal pattern is unremarkable. There is normal motility. Mild reflux. There is some contrast retained within the oropharynx which is eventually cleared without aspiration on this exam. RAD/Esophagus Dual Contrast IMPRESSION: 1. Small hiatal hernia and mild reflux. 2. Some contrast is retained within the oropharynx and is eventually cleared without aspiration on this study. Given patient''s symptomatology of dysphagia, modified barium swallow study may be beneficial for further assessment. Electronically Signed: Darwin Tanner, at 14:24 EST ,
== END | disposition home or self-care (01) ==
PROVIDERS: PCP Preventive Medicine Occupational Medicine; Referring Provider Otolaryngology; Visit Provider Otolaryngology
DX: R13.10 Dysphagia, unspecified (principal); K44.9 Diaphragmatic hernia without obstruction or gangrene
CPT/HCPCS: 74221